=== PATIENT | male | born 1945 | race Caucasian/White ===

== ENCOUNTER 2017-08-25 12:13 | Observation (INO) | payer MEDICARE, OTHER ==
[2017-08-25] MEDS ORDERED: NS 0.9% 1000 ML* 1,000 ML IV ONE (12:37)
--- NOTE | 2017-08-25 13:00 | RAD ---
Indication: Slurred speech with right-sided numbness. CT of the brain was performed without IV contrast. Ventricular structures are midline. No midline shift is noted. Central and cortical atrophy is noted. Wedge-shaped hypodensity in the right posterior cerebellum likely representing old infarct. Likely chronic ischemic White matter change is noted. 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 No intracranial mass or hemorrhage is noted. Findings discussed with Dr. Ornelas at 12:55 PM.
[2017-08-25 13:05] LABS: Hematocrit 36 % (42-52); Hemoglobin 12.2 g/dl (14.0-18.0); Mean Corpuscular HGB Conc 34 g/dl (31-36); Mean Corpuscular Hemoglobin 30 pg (27-31); Mean Corpuscular Volume 88 fL (80-94); Mean Platelet Volume 7 um3 (7.4-10.4); Red Cell Distribution Width 15 % (10.5-15); White Blood Count 10.2 10^3/ul (3.5-10.8)
[2017-08-25 13:39] LABS: Albumin 3.7 g/dL (3.2-5.2); BUN/Creatinine Ratio 9.6 (8-20); Calcium 9.8 mg/dL (8.6-10.3); EGFR Non-African American 52.1 (>60); Globulin 3.2 g/dL (2-4); HDL Cholesterol 54.6 mg/dL; Potassium 3.7 mmol/L (3.5-5.0); Total Bilirubin 0.5 mg/dL (0.2-1.0); Total Protein 6.9 g/dL (6.4-8.9)
[2017-08-25 13:41] LABS: Troponin I 0.01 ng/mL (<0.04)
--- NOTE | 2017-08-25 13:45 | RAD ---
INDICATION: Slurred speech and facial numbness COMPARISON: Most recent comparison chest x-rays dated November 30, 2011 TECHNIQUE: Single AP portable view of the chest was obtained. FINDINGS: Image quality is compromised due to the relative inferiority of a portable chest x-ray. The heart and mediastinum exhibit normal size and contour. The lungs are grossly clear. There is no evidence of a large pleural effusion. Visualized bones are normal for the patient's age. IMPRESSION: No radiographic evidence for acute cardiopulmonary abnormality on this portable chest x-ray.
[2017-08-25] MEDS ORDERED: Iodixanol* (CONTRAST) 320 MG/ML 100 ML SDV IV ONE (13:46)
--- NOTE | 2017-08-25 14:24 | RAD ---
HISTORY: Transient expressive aphasia and right arm weakness COMPARISONS: CT dated August 25, 2017 TECHNIQUE: Multiple contiguous axial CT scans were obtained of the head and neck After the administration of nonionic intravenous contrast timed to the systemic arterial phase of contrast enhancement. Coronal and sagittal multiplanar reformations are submitted for review. Multiple 3-D maximum intensity projection reconstructions are also submitted for review. FINDINGS: CTA NECK: AORTIC ARCH: The aortic arch isn't completely included within the [id number] of the submitted images. There is atherosclerosis of the proximal aorta without appreciable stenosis of the proximal cephalic great vessels. RIGHT VERTEBRAL ARTERY: The right vertebral artery terminates in the right posterior inferior cerebellar artery. LEFT VERTEBRAL ARTERY: The left vertebral artery is patent along its course, without stenosis. DOMINANCE: The left vertebral artery is dominant. RIGHT COMMON CAROTID ARTERY: The right common carotid artery is patent. The right carotid bifurcation occurs at C3-C4 RIGHT INTERNAL CAROTID ARTERY: There is atheromatous disease of the complex ulcerated plaque of the right carotid bifurcation, with approximately 50% short segment stenosis of the proximal right internal carotid artery by NASCET criteria. RIGHT EXTERNAL CAROTID ARTERY: The right external carotid artery is unremarkable. LEFT COMMON CAROTID ARTERY: The left common carotid artery is patent. The left carotid bifurcation occurs at C3-C4 LEFT INTERNAL CAROTID ARTERY: There is calcific atherosclerotic plaque with approximately 60% short segment left internal carotid artery stenosis by NASCET criteria. LEFT EXTERNAL CAROTID ARTERY: The left external carotid artery is unremarkable. VENOUS CIRCULATION: The venous system is unremarkable. SALIVARY GLANDS: The parotid glands, submandibular glands, sublingual glands are normal. NASAL CAVITY/NASOPHARYNX: The nasal cavity and nasopharynx are normal. ORAL CAVITY/OROPHARYNX: The oral cavity and oropharynx are unremarkable. LARYNGEAL APPARATUS/HYPOPHARYNX: The laryngeal apparatus and hypopharynx are normal. UPPER AIRWAY/UPPER ESOPHAGUS: The visualized upper airway and esophagus are normal. LUNG APICES: There is extensive centrilobular and panacinar emphysematous change of the lung apices bilaterally. THYROID GLAND: The thyroid gland is normal. LYMPH NODES: There is no lymphadenopathy by size criteria. BONES AND SOFT TISSUES: Degenerative changes are noted of the spine CTA HEAD: INTRACRANIAL CIRCULATION: There is no aneurysm, vascular malformation, occlusion, or stenosis of the visualized intracranial circulation. The anterior communicating artery complex is clear. There is a origin of the left posterior cerebral artery. VENOUS CIRCULATION: The venous system is unremarkable. PERFUSION: There is no obvious parenchymal perfusion deficit. HEMORRHAGE/INFARCT: There is no hemorrhage or acute infarct. MASSES/SHIFT: There is no mass or shift. EXTRA-AXIAL SPACES: There are no extra-axial fluid collections. SULCI AND VENTRICLES: The sulci and ventricles are normal in size and position for the patient's stated age. CEREBRUM: There are no focal parenchymal abnormalities. BRAINSTEM: There are no focal parenchymal abnormalities. CEREBELLUM: There is a chronic infarct of the right inferior cerebellum PARANASAL SINUSES: The paranasal sinuses are clear. ORBITS: The orbits are unremarkable. BONES AND SOFT TISSUE: No bone or soft tissue abnormalities are noted. OTHER: There is no abnormal enhancement. IMPRESSION: 1. ATHEROSCLEROSIS. 2. THERE IS APPROXIMATELY 50% SHORT SEGMENT RIGHT INTERNAL CAROTID ARTERY STENOSIS WITH 60% SHORT SEGMENT LEFT INTERNAL CAROTID ARTERY STENOSIS BY NASCET CRITERIA. 3. THERE IS COMPLEX ULCERATED PLAQUE OF THE RIGHT CAROTID BIFURCATION. 4. NO ANEURYSM, VASCULAR MALFORMATION, OCCLUSION, OR STENOSIS OF THE VISUALIZED INTRACRANIAL CIRCULATION. 5. EMPHYSEMA CPT II Codes: 3100F
--- NOTE | 2017-08-25 15:39 | ED ---
Elaine Horan Edward, scribed for Bryan Ornelas MD on 08/25/17 at 1229 . Neurological HPI - HPI Summary HPI Summary: 72 y/o male presents to the ED c/o slurred speech and R side facial numbness/ tingling earlier this morning. Pt first had an episode of slurred speech at around 09:30 this morning that lasted minutes. The pt knew what he wanted to say but could not produce comprehensible speech. Then at 11:30 the pt c/o R side facial numbness/tingling and RUE weakness, along with slurred speech. Pt currently does not c/o numbness/tingling in his face or extremities. Currently the pt states that his legs intermittently feel like "they are asleep". Associated sx: pressure behind both eyes, intermittent chills. Pt is R handed. PMHx AAA, HLD, COPD, GERD, HTN. Sx bypass. - History of Current Complaint Chief Complaint: EDNeurologicalDeficit Stated Complaint: SLURRED SPEECH, FACIAL NUMBESS Hx Obtained From: Patient Onset/Duration: Sudden Onset, Started hours ago - 09:30 Timing: Intermittent Episodes Lasting: - minutes Neurological Deficit Location: Facial, RUE, RLE, LLE Pain Intensity: 0 Character: Numbness/Tingling - face, RUE, and bilateral legs, Motor Weakness - bilateral legs, RUE, Impaired Speech Frequency: Episodes x___ - 2, Episodes Lasting ____ (in Mins/Days/Weeks/Years) - minutes Aggravating: Nothing Alleviating: Nothing Associated Signs and Symptoms: Positive: Weakness, Impaired Speech, Numbness - Allergy/Home Medications Allergies/Adverse Reactions: Allergies Allergy/AdvReac Type Severity Reaction Status Date / Time Amoxicillin [From Augmentin] Allergy Vomiting Verified 08/25/17 13:33 Clavulanic Acid Allergy Vomiting Verified 08/25/17 13:33 [From Augmentin] Home Medications: Home Medications Acetaminophen [Acetaminophen Extra Stren] 500 mg PO Q6HR PRN 08/25/17 [History Confirmed 08/25/17] Albuterol HFA INHALER* [Ventolin HFA Inhaler*] 2 puff INH BID 08/25/17 [History Confirmed 08/25/17] Aspirin TAB* [Aspirin 325 MG TAB*] 325 mg PO DAILY 08/25/17 [History Confirmed 08/25/17] Atorvastatin* [Lipitor*] 40 mg PO DAILY 08/25/17 [History Confirmed 08/25/17] Budesonide/Formote 160/4.5(NF) [Symbicort 160/4.5 (NF)] 2 puff INH BID 08/25/17 [History Confirmed 08/25/17] Omeprazole CAP* [Prilosec CAP* 20 MG] 20 mg PO DAILY 08/25/17 [History Confirmed 08/25/17] amLODIPine TAB* [Norvasc 5 mg TAB*] 5 mg PO DAILY 08/25/17 [History Confirmed ] PMH/Surg Hx/FS Hx/Imm Hx Previously Healthy: No Cardiovascular History: Reports: Hx Aneurysm - AAA, Hx Hypertension, Other Cardiovascular Problems/Disorders - blood clots in legs Respiratory History: Reports: Hx Chronic Obstructive Pulmonary Disease (COPD) GI History: Reports: Hx Gastroesophageal Reflux Disease - Surgical History Surgery Procedure, Year, and Place: bypass Infectious Disease History: No Infectious Disease History: Denies: Traveled Outside the [place] in Last 30 Days - Social History Lives: With Family Review of Systems Positive: Chills Positive: Other - pressure behind both eyes ENT: Negative Cardiovascular: Negative Respiratory: Negative Gastrointestinal: Negative Genitourinary: Negative Musculoskeletal: Negative Skin: Negative Positive: Weakness - RUE, bilateral legs, Numbness - and tingling in face, Slurred Speech Psychological: Normal All Other Systems Reviewed And Are Negative: Yes Physical Exam Triage Information Reviewed: Yes Vital Signs On Initial Exam: Initial Vitals Temp Pulse Resp BP Pulse Ox 98.3 F 55 14 171/130 100 08/25/17 12:17 08/25/17 12:17 08/25/17 12:17 08/25/17 12:17 08/25/17 12:17 Vital Signs Reviewed: Yes Appearance: Positive: Well-Appearing, No Pain Distress Skin: Positive: Warm, Skin Color Reflects Adequate Perfusion, Dry Head/Face: Positive: Normal Head/Face Inspection Eyes: Positive: EOMI, AFIA ENT: Positive: Normal ENT inspection Neck: Positive: Supple, Nontender Respiratory/Lung Sounds: Positive: Clear to Auscultation, Breath Sounds Present Cardiovascular: Positive: RRR Abdomen Description: Positive: Nontender, Soft Bowel Sounds: Positive: Present Musculoskeletal: Positive: Normal, Strength/ROM Intact Neurological: Positive: Normal, Sensory/Motor Intact, Alert, Oriented to Person Place, Time Psychiatric: Positive: Affect/Mood Appropriate - Darlene Coma Scale Best Eye Response: 4 - Spontaneous Best Motor Response: 6 - Obeys Commands Best Verbal Response: 5 - Oriented Diagnostics - Vital Signs Vital Signs Temp Pulse Resp BP Pulse Ox 08/25/17 12:17 98.3 F 55 14 171/130 100 - Laboratory Lab Results: Lab Results 08/25/17 08/25/17 08/25/17 Range/Units 12:50 12:50 12:50 WBC 10.2 (3.5-10.8) 10^3/ul RBC 4.10 (4.0-5.4) 10^6/ul Hgb 12.2 L (14.0-18.0) g/dl Hct 36 L (42-52) % MCV 88 (80-94) fL MCH 30 (27-31) pg MCHC 34 (31-36) g/dl RDW 15 (10.5-15) % Plt Count 230 (150-450) 10^3/ul MPV 7 L (7.4-10.4) um3 Neut % (Auto) 75.9 (38-83) % Lymph % (Auto) 14.0 L (25-47) % [place] % (Auto) 7.2 (1-9) % Eos % (Auto) 2.2 (0-6) % Baso % (Auto) 0.7 (0-2) % Absolute Neuts (auto) 7.7 (1.5-7.7) 10^3/ul Absolute Lymphs (auto) 1.4 (1.0-4.8) 10^3/ul Absolute Monos (auto) 0.7 (0-0.8) 10^3/ul Absolute Eos (auto) 0.2 (0-0.6) 10^3/ul Absolute Basos (auto) 0.1 (0-0.2) 10^3/ul Absolute Nucleated RBC 0 10^3/ul Nucleated RBC % 0 INR (Anticoag Therapy) 0.94 (0.89-1.11) APTT 26.9 (26.0-36.3) seconds Sodium 136 (133-145) mmol/L Potassium 3.7 (3.5-5.0) mmol/L Chloride 100 L (101-111) mmol/L Carbon Dioxide 27 (22-32) mmol/L Anion Gap 9 (2-11) mmol/L BUN 13 (6-24) mg/dL Creatinine 1.35 H (0.67-1.17) mg/dL Est GFR ( Amer) 67.0 (>60) Est GFR (Non-Af Amer) 52.1 (>60) BUN/Creatinine Ratio 9.6 (8-20) Glucose 97 (70-100) mg/dL POC Glucose (mg/dL) (70-100) mg/dL Lactic Acid (0.5-2.0) mmol/L Calcium 9.8 (8.6-10.3) mg/dL Total Bilirubin 0.50 (0.2-1.0) mg/dL AST 10 L (13-39) U/L ALT 10 (7-52) U/L Alkaline Phosphatase 67 (34-104) U/L Troponin I 0.01 (<0.04) ng/mL Total Protein 6.9 (6.4-8.9) g/dL Albumin 3.7 (3.2-5.2) g/dL Globulin 3.2 (2-4) g/dL Albumin/Globulin Ratio 1.2 (1-3) Triglycerides 101 mg/dL Cholesterol 171 mg/dL LDL Cholesterol 96 mg/dL HDL Cholesterol 54.6 mg/dL Blood Type Antibody Screen 08/25/17 08/25/17 08/25/17 Range/Units 12:50 12:50 13:30 WBC (3.5-10.8) 10^3/ul RBC (4.0-5.4) 10^6/ul Hgb (14.0-18.0) g/dl Hct (42-52) % MCV (80-94) fL MCH (27-31) pg MCHC (31-36) g/dl RDW (10.5-15) % Plt Count (150-450) 10^3/ul MPV (7.4-10.4) um3 Neut % (Auto) (38-83) % Lymph % (Auto) (25-47) % [place] % (Auto) (1-9) % Eos % (Auto) (0-6) % Baso % (Auto) (0-2) % Absolute Neuts (auto) (1.5-7.7) 10^3/ul Absolute Lymphs (auto) (1.0-4.8) 10^3/ul Absolute Monos (auto) (0-0.8) 10^3/ul Absolute Eos (auto) (0-0.6) 10^3/ul Absolute Basos (auto) (0-0.2) 10^3/ul Absolute Nucleated RBC 10^3/ul Nucleated RBC % INR (Anticoag Therapy) (0.89-1.11) APTT (26.0-36.3) seconds Sodium (133-145) mmol/L Potassium (3.5-5.0) mmol/L Chloride (101-111) mmol/L Carbon Dioxide (22-32) mmol/L Anion Gap (2-11) mmol/L BUN (6-24) mg/dL Creatinine (0.67-1.17) mg/dL Est GFR ( Amer) (>60) Est GFR (Non-Af Amer) (>60) BUN/Creatinine Ratio (8-20) Glucose (70-100) mg/dL POC Glucose (mg/dL) 111 H (70-100) mg/dL Lactic Acid 1.4 (0.5-2.0) mmol/L Calcium (8.6-10.3) mg/dL Total Bilirubin (0.2-1.0) mg/dL AST (13-39) U/L ALT (7-52) U/L Alkaline Phosphatase (34-104) U/L Troponin I (<0.04) ng/mL Total Protein (6.4-8.9) g/dL Albumin (3.2-5.2) g/dL Globulin (2-4) g/dL Albumin/Globulin Ratio (1-3) Triglycerides mg/dL Cholesterol mg/dL LDL Cholesterol mg/dL HDL Cholesterol mg/dL Blood Type B Negative Antibody Screen Negative Result Diagrams: 08/25/17 12:50 08/25/17 12:50 Lab Statement: Any lab studies that have been ordered have been reviewed, and results considered in the medical decision making process. - Radiology CXR Xray Interpretation: No Acute Changes - No radiographic evidence for acute cardiopulmonary abnormality on this portable chest x-ray. 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 No intracranial mass or hemorrhage is noted. Findings discussed with Dr. Ornelas at 12:[address] Interpretation Completed By: Radiologist HEAD CTA CT Interpretation: Positive (See Comments) - 1. ATHEROSCLEROSIS. 2. THERE IS APPROXIMATELY 50% SHORT SEGMENT RIGHT INTERNAL CAROTID ARTERY STENOSIS WITH 60% SHORT SEGMENT LEFT INTERNAL CAROTID ARTERY STENOSIS BY NASCET CRITERIA. 3. THERE IS COMPLEX ULCERATED PLAQUE OF THE RIGHT CAROTID BIFURCATION. 4. NO ANEURYSM, VASCULAR MALFORMATION, OCCLUSION, OR STENOSIS OF THE VISUALIZED INTRACRANIAL CIRCULATION. 5. EMPHYSEMA CT Interpretation Completed By: Radiologist - ED PHYSICIAN REVIEWS AND AGREES - Additional Comments Diagnostic Additional Comments: EKG - 13:01 - NSR @ [address] No ectopy. Short VA interval. Borderline prolonged QT interval. Course/Dx - Course Course Of Treatment: DR WELDON, NEUROLOGY SAW PATIENT IN ED. Assessment/Plan: Mari fine called at 12:37. Admitted to HOSPITALIST, Dr. Costa @ 13:52. - Diagnoses Provider Diagnoses: TIA (transient ischemic attack) - Physician Notifications Discussed Care Of Patient With: Jb Weldon Time Discussed With Above Provider: 12:40 Instructed by Provider To: MD Will See In ED Discharge - Discharge Plan Condition: Stable Disposition: ADMITTED TO [facility] Referrals: Ugo Leiva MD [Primary Care Provider] - The documentation as recorded by the Elaine alcaraz Edward accurately reflects the service I personally performed and the decisions made by me, Bryan Ornelas MD.
--- NOTE | 2017-08-25 15:47 | RAD ---
HISTORY: MRI screening, history of metallic foreign body COMPARISONS: None VIEWS: Frontal views of the abdomen. FINDINGS: BOWEL: There is a nonspecific bowel gas pattern, with nondilated small bowel gas noted. CALCULI: There are calculi overlying the renal parenchymal shadow as bilaterally measuring up to 0.5 cm. BONES AND SOFT TISSUES: There is a scoliotic curvature of the spine. Degenerative changes are noted OTHER FINDINGS: The lung bases are clear. There is no subphrenic gas. An aortic stent graft is noted. IMPRESSION: 1. BILATERAL NEPHROLITHIASIS. 2. AORTIC STENT GRAFT. 3. NONSPECIFIC BOWEL GAS PATTERN.
--- NOTE | 2017-08-25 16:39 | RAD ---
Indication: Dysarthria, aphasia Image sequences: Sagittal and axial T1, axial T2, FLAIR, diffusion and susceptibility weighted images of the brain were obtained. Ventricular structures are midline. No midline shift is noted. The extra-axial spaces are unremarkable. No restriction of diffusion is noted. Periventricular signal abnormalities consistent with microvascular disease is noted. Wedge-shaped signal abnormality in the the right cerebellum is noted consistent with old right cerebellar infarct. There may be some adjacent gliosis. Paranasal sinuses are otherwise unremarkable. Mastoid air cells are unremarkable. IMPRESSION: OLD RIGHT CEREBELLAR INFARCT. CHRONIC ISCHEMIC WHITE MATTER CHANGE. NO EVIDENCE OF ACUTE RESTRICTION OF DIFFUSION IS NOTED.
[2017-08-25 16:49] LABS: Urine Bacteria Absent (Absent); Urine Bilirubin Negative (Negative); Urine Glucose Negative (Negative); Urine Nitrite Negative (Negative)
[2017-08-25 17:03] LABS: TSH (Thyroid Stimulating Horm) 2.15 mcIU/mL (0.34-5.60)
[2017-08-25 17:05] LABS: Free T4 0.96 ng/dL (0.61-1.12)
[2017-08-25 17:11] LABS: Folate 5.52 ng/mL (>3.99)
[2017-08-25] MEDS ORDERED: Ondansetron INJ* 2 MG/ML VIAL IV PRN (17:24)
[2017-08-25] MEDS ORDERED: Acetaminophen TAB* 325 MG PO PRN (17:24)
--- NOTE | 2017-08-25 17:36 | HP ---
History of Present Illness - History of Present Illness Reason for Visit: Neurological deficits History of Present Illness: Mr. Bryant presented to the ED complaining of neurological deficits. At approximately 9:30 AM this morning, patient's significant other (SO) was having a conversation with patient when pt. responded with garbled speech. According to SO, patient had a blank stare for a couple of minutes, and eventually responded by shaking his head. SO recognized that patient was possibly having a CVA and called the patient's PCP at the [facility]. [facility] suggested reporting to the ED, however, patient was not interested. At approximately 11:30 AM, patient told his SO, "my face doesn't feel right." SO appreciated a right-sided facial droop at this time, and patient agreed to go to the ED. Shortly after arrival to the ED, pt's symptoms resolved. At the time of the incident, patient admitted to tingling in his right arm, numbness of the right 2nd-4th digits, B/L tingling of LE, and pressure behind both eyes. Pt. denied fatigue, fever, chills, lightheadedness, dizziness, CHRISTY, visual disturbances, CP, LE edema, SOB, abdominal pain, N/V/D, dysuria, or other weakness. - Past Medical History Cardiac: HTN, Hyperlipidemia, Other - Peripheral Vascular Disease Pulmonary: COPD - Past Surgical History Past Surgical History: Hernia Repair - L. Inguinal, Other - AAA repair, Femoral- popliteal bypass B/L - Past Family History Family History: Other - Adopted; unknown - Past Social History Smoke: # pack years - 50, <1 pack per day Occupation: Alcohol: Occassional - 1-3 beverages/day Drugs: None Lives: With Family - Significant other Review of Systems - Review of Systems Eyes: Positive: Other - Pressure behind both eyes Respiratory: Positive: Cough Neurological: Positive: Numbness, Change in Speech - Medications/Allergies Allergies/Adverse Reactions: Allergies Allergy/AdvReac Type Severity Reaction Status Date / Time Amoxicillin [From Augmentin] Allergy Vomiting Verified 08/25/17 13:33 Clavulanic Acid Allergy Vomiting Verified 08/25/17 13:33 [From Augmentin] Medications: Current Medications Acetaminophen (Tylenol Tab*) 650 mg PO Q4H PRN PRN Reason: FEVER/PAIN Aspirin (Ecotrin Ec Tab*) 325 mg PO DAILY EVIN Enoxaparin Sodium (Lovenox(*)) 40 mg SUBCUT Q24H EVIN Ondansetron HCl (Zofran Inj*) 4 mg IV Q4H PRN PRN Reason: NAUSEA/VOMITING Acetaminophen [Acetaminophen Extra Stren] 500 mg PO Q6HR PRN 08/25/17 [History Confirmed 08/25/17] Albuterol HFA INHALER* [Ventolin HFA Inhaler*] 2 puff INH BID 08/25/17 [History Confirmed 08/25/17] Aspirin TAB* [Aspirin 325 MG TAB*] 325 mg PO DAILY 08/25/17 [History Confirmed 08/25/17] Atorvastatin* [Lipitor*] 40 mg PO DAILY 08/25/17 [History Confirmed 08/25/17] Budesonide/Formote 160/4.5(NF) [Symbicort 160/4.5 (NF)] 2 puff INH BID 08/25/17 [History Confirmed 08/25/17] Omeprazole CAP* [Prilosec CAP* 20 MG] 20 mg PO DAILY 08/25/17 [History Confirmed 08/25/17] amLODIPine TAB* [Norvasc 5 mg TAB*] 5 mg PO DAILY 08/25/17 [History Confirmed ] Exam - Exam Vital Signs: Vital Signs (72 hours) 08/25/17 16:03 Pulse Rate 90 Respiratory 16 Rate Blood Pressure 172/100 (mmHg) O2 Sat by Pulse 99 Oximetry General: Alert, Oriented x3, Cooperative, No acute distress HEENT: Atraumatic, PERRLA, EOMI Lungs: Clear to auscultation Cardiovascular: Regular rate, Normal S1, Normal S2, No murmurs Abdomen: Soft, No tenderness Extremities: No edema, Normal pulses Neurological: Normal speech, Strength at 5/5 X4 ext, Normal tone, Sensation intact, Cranial nerves 3-12 NL Psych/Mental Status: Mental status NL Assessment/Plan - Assessment/Plan Assessment: TIA-- Imaging: Brain CT-No acute disease CTA-50% Right internal carotid artery stenosis; 60% Left internal carotid artery stenosis Brain MRI-no acute disease Laboratory Studies: Lipid panel, CMP, CBC, PT/PTT-all WNL Diagnostic Studies: EKG-No acute disease Echocardiogram-Moderate mitral and tricuspid regurgitation Laboratory Results - last 24 hr 1108/25/17 08/25/17 12:50 12:50 12:50 WBC 10.2 RBC 4.10 Hgb 12.2 L Hct 36 L MCV 88 MCH 30 MCHC 34 RDW 15 Plt Count 230 MPV 7 L Neut % (Auto) 75.9 Lymph % (Auto) 14.0 L [place] % (Auto) 7.2 Eos % (Auto) 2.2 Baso % (Auto) 0.7 Absolute Neuts (auto) 7.7 Absolute Lymphs (auto) 1.4 Absolute Monos (auto) 0.7 Absolute Eos (auto) 0.2 Absolute Basos (auto) 0.1 Absolute Nucleated RBC 0 Nucleated RBC % 0 INR (Anticoag Therapy) 0.94 APTT 26.9 Sodium 136 Potassium 3.7 Chloride 100 L Carbon Dioxide 27 Anion Gap 9 BUN 13 Creatinine 1.35 H Est GFR ( Amer) 67.0 Est GFR (Non-Af Amer) 52.1 BUN/Creatinine Ratio 9.6 Glucose 97 POC Glucose (mg/dL) Lactic Acid Calcium 9.8 Total Bilirubin 0.50 AST 10 L ALT 10 Alkaline Phosphatase 67 Troponin I 0.01 Total Protein 6.9 Albumin 3.7 Globulin 3.2 Albumin/Globulin Ratio 1.2 Triglycerides 101 Cholesterol 171 LDL Cholesterol 96 HDL Cholesterol 54.6 Vitamin B12 158 L Folate 5.52 TSH 2.15 Free T4 0.96 Urine Color Urine Appearance Urine pH Ur Specific [place] Urine Protein Urine Ketones Urine Blood Urine Nitrate Urine Bilirubin Urine Urobilinogen Ur Leukocyte Esterase Urine WBC (Auto) Urine RBC (Auto) Urine Bacteria Urine Glucose Blood Type Antibody Screen 08/25/17 08/25/17 08/25/17 12:50 12:50 13:30 WBC RBC Hgb Hct MCV MCH MCHC RDW Plt Count MPV Neut % (Auto) Lymph % (Auto) [place] % (Auto) Eos % (Auto) Baso % (Auto) Absolute Neuts (auto) Absolute Lymphs (auto) Absolute Monos (auto) Absolute Eos (auto) Absolute Basos (auto) Absolute Nucleated RBC Nucleated RBC % INR (Anticoag Therapy) APTT Sodium Potassium Chloride Carbon Dioxide Anion Gap BUN Creatinine Est GFR ( Amer) Est GFR (Non-Af Amer) BUN/Creatinine Ratio Glucose POC Glucose (mg/dL) 111 H Lactic Acid 1.4 Calcium Total Bilirubin AST ALT Alkaline Phosphatase Troponin I Total Protein Albumin Globulin Albumin/Globulin Ratio Triglycerides Cholesterol LDL Cholesterol HDL Cholesterol Vitamin B12 Folate TSH Free T4 Urine Color Urine Appearance Urine pH Ur Specific [place] Urine Protein Urine Ketones Urine Blood Urine Nitrate Urine Bilirubin Urine Urobilinogen Ur Leukocyte Esterase Urine WBC (Auto) Urine RBC (Auto) Urine Bacteria Urine Glucose Blood Type B Negative Antibody Screen Negative 08/25/17 16:00 WBC RBC Hgb Hct MCV MCH MCHC RDW Plt Count MPV Neut % (Auto) Lymph % (Auto) [place] % (Auto) Eos % (Auto) Baso % (Auto) Absolute Neuts (auto) Absolute Lymphs (auto) Absolute Monos (auto) Absolute Eos (auto) Absolute Basos (auto) Absolute Nucleated RBC Nucleated RBC % INR (Anticoag Therapy) APTT Sodium Potassium Chloride Carbon Dioxide Anion Gap BUN Creatinine Est GFR ( Amer) Est GFR (Non-Af Amer) BUN/Creatinine Ratio Glucose POC Glucose (mg/dL) Lactic Acid Calcium Total Bilirubin AST ALT Alkaline Phosphatase Troponin I Total Protein Albumin Globulin Albumin/Globulin Ratio Triglycerides Cholesterol LDL Cholesterol HDL Cholesterol Vitamin B12 Folate TSH Free T4 Urine Color Straw Urine Appearance Clear Urine pH 8.0 Ur Specific [place] 1.013 Urine Protein 2+(100 mg/dl) H Urine Ketones Negative Urine Blood Negative Urine Nitrate Negative Urine Bilirubin Negative Urine Urobilinogen Negative Ur Leukocyte Esterase Negative Urine WBC (Auto) Absent Urine RBC (Auto) Absent Urine Bacteria Absent Urine Glucose Negative Blood Type Antibody Screen Plan: Mr. Bryant is a 72 yo M who presented to ED with neurological deficits, and since then, symptoms have resolved. Patient will be admitted for TIA work-up. 1. TIA-Patient will be switched from Aspirin to Plavix to maximize anti- platelet therapy and will be monitored on the telemetry unit. 2. COPD-Continue routine medications 3. Hyperlipidemia-Continue routine medications 4. HTN-Tight BP control as BP was 172/100 on admission
--- NOTE | 2017-08-25 17:48 | ECHO ---
Patient: ANA ESPANA [facility] Rec#: [id number] : 1945 Date: 08/25/2017 Age: 72y Height: 167.64 cm / 66.0 in Weight: 64.41 kg / 142.0 lbs Sex: M BSA: 1.73 Room#: -8 Admit Date#: 08/25/2017 Type: Inpatient Referring: Miguel Weldon Reading: Ean Cheney MD Campaign Manager: Karla Stein [facility] Transthoracic Echocardiogram Indication: TIA BP: 166/86 HR: 91 Rhythm: NSR with PVCs Findings History: COPD,s/p fem-popbypass,AAA,HTN,GERD,smoker. Left Ventricle: The left ventricular chamber size is normal. Mild global hypokinesis of the left ventricle is observed. Left ventricular systolic function is at the lower limits of normal. The estimated ejection fraction is 45-50%. Abnormal left ventricular diastolic function is observed. The basal inferior wall segment is hypokinetic (score 2). Overall wallmotion score index is 2.00 Left Atrium: The left atrial chamber size is normal. Right Ventricle: The right ventricular cavity size is normal. The right ventricular global systolic function is normal. Right Atrium: The right atrial cavity size is normal. There is no patent foramen ovale visualized. A patent foramen ovale is not demonstrated with color Doppler and agitated contrast. Aortic Valve: The aortic valve structure is not well visualized. There is no evidence of aortic valve thickening. There is no evidence of aortic regurgitation. There is no evidence of aortic stenosis. Mitral Valve: The mitral valve leaflets are mildly thickened. There is mild to moderate mitral regurgitation. There is no evidence of mitral stenosis. Tricuspid Valve: The tricuspid valve leaflets are normal. There is mild tricuspid regurgitation. No pulmonary hypertension is noted. There is no tricuspid stenosis. Pulmonic Valve: The pulmonic valve structure is not well visualized. Pericardium: The pericardium appears normal. Aorta: The ascending aorta is not well visualized. There is no dilatation of the aortic arch. There is no dilation of the aortic root. Pulmonary Artery: The main pulmonary artery is not well visualized. Venous: The inferior vena cava appears normal in size. There is a greater than 50% respiratory change in the inferior vena cava dimension. Contrast: Normal saline was used as contrast for the bubble study. Intravenous contrast was used to enhance endocardial border definition. Conclusions Mild global hypokinesis of the left ventricle is observed. Left ventricular systolic function is at the lower limits of normal. The estimated ejection fraction is 45-50%. The basal inferior wall segment is hypokinetic (score 2). The right ventricular global systolic function is normal. A patent foramen ovale is not demonstrated with color Doppler and agitated contrast. There is no evidence of aortic stenosis. There is mild to moderate mitral regurgitation. There is mild tricuspid regurgitation. No pulmonary hypertension is noted. The pericardium appears normal. Measurements Name Value Normal Range RVDdMajor (2D) 2.6 cm (2.2 - 4.4) RAd ISD 4CH 4.3 cm (3.4 - 4.9) RA (A4C)W 2.8 cm (2.9 - 4.6) IVSd (2D) 0.8 cm (0.6 - 1) LVPWd (2D) 0.8 cm (0.6 - 1) LVIDd (2D) 4.6 cm (3.6 - 5.4) LVIDs (2D) 3.3 cm - LV FS (2D) 28 % (25 - 45) Aortic Annulus 2 cm (1.4 - 2.6) Ao root diameter (2D) 3.4 cm (2.1 - 3.5) Aortic arch 1.8 cm (1.8 - 3.4) Descending Ao 0.5 cm - LA dimension (AP) 2D 2.7 cm (2.3 - 3.8) LAd ISD 4CH 4.4 cm (2.9 - 5.3) LA ISD 4CH W 3.5 cm (2.5 - 4.5) Name Value Normal Range LA ESV SP 4CH (A/L) 36 ml - LA ESV SP 2CH (A/L) 47 ml - LA ESV BP (A/L) 43 ml - LA ESV BP (A/L) index 24.87 ml/m2 - LA ESV SP 4CH (MOD) 34 ml - LA ESV SP 2CH (MOD) 44 ml - Name Value Normal Range MV E-wave Vmax 0.6 m/sec - MV deceleration time 254 msec - MV A-wave Vmax 0.9 m/sec - MV E:A ratio 0.62 ratio - LV septal e' Vmax 0.08 m/sec - LV lateral e' Vmax 0.06 m/sec - LV E:e' septal ratio 7.5 ratio - LV E:e' lateral ratio 10 ratio - Name Value Normal Range AV Vmax 1.2 m/sec - AV VTI 23.5 cm - AV peak gradient 5.88 mmHg - AV mean gradient 2.99 mmHg - LVOT Vmax 1 m/sec - LVOT VTI 19.9 cm - LVOT peak gradient 4.04 mmHg - LVOT mean gradient 1.89 mmHg - Name Value Normal Range MR Vmax 5.6 m/sec - MR VTI 187 cm - Name Value Normal Range TR Vmax 2.4 m/sec - TR peak gradient 24 mmHg - RAP 3 mmHg - RVSP 27 mmHg - IVC diameter 1.9 cm - Wallmotion BAS Not Seen BA Not Seen BAL Not Seen HOWARD Not Seen BI Hypokinetic BIS Not Seen MAS Not Seen MA Not Seen MAL Not Seen MIL Not Seen MN Not Seen MIS Not Seen Not Seen AA Not Seen AL Not Seen AI Not Seen APEX Not Seen
[2017-08-25] MEDS ORDERED: Enoxaparin(*) 40 MG/0.4 ML SYR SUBCUT SCH (18:00)
--- NOTE | 2017-08-25 19:38 | CONS ---
CONSULTATION REPORT: DATE OF CONSULTATION: 08/25/17 REASON FOR CONSULTATION: Speech difficulties and numbness and tingling. HISTORY OF PRESENT ILLNESS: Mr. 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 He has been on amlodipine for years for his history of aneurysms with good control of his blood pressure. He also has a history of hyperlipidemia. He is a smoker and drinker. He was in his usual state of health when this morning at 9:30, he was talking and his family noted that he was having some difficulty with speech. They said his words were coming out "jumbled." He states he knew what he wanted to say, but he could not produce the words. He states that the symptoms lasted for about 10 minutes and then resolved and he returned back to his usual state of health with no focal deficits. He denied any vision changes at that time, any headache at that time, hearing changes, swallowing problems. There was no facial droop at that time. No focal numbness, tingling, or weakness in his arms or legs. No chest pain, shortness of breath above baseline. No other focal neurologic symptoms. About 2 hours later at 11:30, he noted some numbness in the right side of his face, his family thought that he might have a mild droop on the right side of his face. He also noted numbness and tingling in the digits 3, 4 , and 5 on the right hand, and he noted some bilateral feet numbness, which he states he gets at times when he has been standing for a while. He also had some slurred speech at that time. It lasted for another few minutes and then resolved. Ambulance was called and he was brought to the ER. In the ER, imaging was done. A CT of the head was reviewed, it showed no acute abnormalities. 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 The patient was unaware of any prior strokes. Since his visit in the ER, he has been asymptomatic. He states that at the time of his last symptoms at 11:00, he had some pressure behind his eyes, but did not describe it as a headache. Again noted no vision changes, no loss of vision or blurred vision, no double vision, no hearing changes, although he does have chronic loss of hearing. No swallowing problems. No other focal neurologic signs except those noted above. He specifically denied any left- sided numbness, tingling, or weakness. He denied any weakness on the right side , only the numbness and tingling. He states that after his surgery on 07/21/17 , he did have some urinary retention and he occasionally has chills, but otherwise denies any other symptoms, specifically no nausea or vomiting, no shortness of breath above his baseline, no chest pain. No dyspnea on exertion, no dysuria or frequency, no diarrhea or constipation, no musculoskeletal aches or pains, he denies any recent falls, denies any severe depression or anxiety. PAST MEDICAL HISTORY: As noted above, includes: 1. COPD. 2. Peripheral artery disease. 3. Hyperlipidemia. 4. Hypertension. PAST SURGICAL HISTORY: Includes: 1. Hernia repair on the right. He does have an inguinal hernia on the left as well, unrepaired. 2. Aneurysms removed in the legs in the distant past. 3. Fem-pop bypass bilaterally in the past. 4. Aortic aneurysm repair intravascularly with stenting on 07/21/17. MEDICATIONS AT HOME: Include: 1. Albuterol inhaler. 2. Symbicort. 3. Tylenol p.r.n. 4. Omeprazole. 5. Aspirin 325 mg daily. 6. Amlodipine 5 mg daily. 7. Atorvastatin 4 mg daily. ALLERGIES: AUGMENTIN. FAMILY HISTORY: Noncontributory. He is adopted and does not know his family history. SOCIAL HISTORY: He is retired. Worked at a [employer]. He states that he drinks; prior to 07/21/17, he was drinking 2 to 3 beers a day. Since 07/21/17, he states he has been drinking 1 to 2 beers a day. This has been ongoing for years. No history of DTs or withdrawal seizures. He smoked in the past heavily , most recently 3 to 4 cigarettes per day. He states that he stopped for several years, but gained weight and restarted. He denies any drug use. PHYSICAL EXAMINATION: Vital Signs: Temperature of 98.3, heart rate of 98, respiratory rate of 16, O2 sat of 96%. He is 171/130. His repeat blood pressure is pending. On exam, in general, he is a well-nourished, well- developed, although thin gentleman in no acute distress. He is lying in his hospital bed. His family at the bedside. He is pleasant, well dressed and well groomed. HEENT: He is normocephalic, atraumatic. Sclerae are anicteric. Mucous membranes are moist. Oropharynx is clear. He has poor dentition. Neck is supple. No thyromegaly. No carotid bruits. No meningismus. Chest: Clear to auscultation bilaterally. Cardiovascular: Regular rate and rhythm. No murmurs. Abdomen: Nontender. Extremities: No clubbing, cyanosis, or edema. He has good peripheral pulses bilaterally in the feet. On neurologic exam, he is awake, alert and oriented x3. His speech is fluent. There is no dysarthria. Repetition is intact. Recall of recent and remote events is intact. Vocabulary is intact. His mood is dysthymic and anxious. Affect: Mood congruent. Cranial nerves II through XII: Pupils are equal, round, and reactive to light and accommodation. Extraocular muscles are intact. Visual ascencio are full. He has 1 to 2 beats lateral gaze nystagmus bilaterally. There is a very subtle right lower facial droop. Facial sensation is intact. Tongue is midline. Palate raises symmetrically. Sternocleidomastoid and trapezius are intact. His strength is 5/5 throughout. There is no drift in the upper or lower extremities. Sensation is intact to light touch and pinprick throughout with preserved vibration proprioception in the feet bilaterally. DTRs are 1+ and symmetric in the upper extremities, 2+ and symmetric in the lower extremities. Withdrawal Babinski bilaterally. Finger-to -nose and rapid alternating movements as well as [id number] are both normal without ataxia. No tremor at rest. Gait was not tested, although he has been ambulating without difficulty. LABORATORY DATA: Lab work includes CBC with diff, hemoglobin of 12.2, hematocrit of 36, 14.0. INR 0.94, PTT of 26.9. CT scan as noted above. EKG; normal sinus rhythm. ASSESSMENT AND PLAN: Mr. Bryant is a 72-year-old gentleman with multiple stroke risk factors including peripheral artery disease, status post fem-pop bypass x2, status post abdominal aortic aneurysm repair on 08/21/17 with stent placement, hyperlipidemia, and hypertension, presents to the hospital with acute onset of some speech difficulties, but may have been some mild expressive aphasia, which resolved after 10 minutes, had a subsequent event 2 hours later at 11:30 that was similar in nature with some mild right lower facial droop and numbness and tingling in the 3rd to 5th digits as well as in his feet bilaterally. This subsequently resolved. On my examination, he has NIH of 1 with a mild right lower facial droop, but otherwise is asymptomatic. At this point, I suspect that this may be transient ischemic attack versus an evolving stroke likely subcortical in nature on the left, but given the fact that he may have had some aphasia, cannot rule out a cortical stroke, although suspicion is low. The plan is to admit him, continue his aspirin. He was previously on Plavix for years, but was switched to aspirin because of his aneurysm and has been on that and taking it. We will continue his statin, check his lipids. For now, would allow for some permissive hypertension. Should his MRI show no evidence of stroke, we can strive for tight blood pressure control. We will get a CT angiogram as well to look for any evidence of arterial disease. Get an echocardiogram. Given his recent abdominal aortic aneurysm, we might want to consider repeat imaging of his abdomen during this hospitalization, although he is currently asymptomatic. We will check labs, rule out reversible causes of stroke, watch him closely with neuro checks. I will continue to follow him closely and make further recommendations as necessary. Thank you for the opportunity to participate in his care. [id number]/[facility] #: [id number] GARCIA
[2017-08-25] MEDS: Mometasone/Formoter 200/5 MDI INH SCH ×2 (21:06→23:44)
[2017-08-25] MEDS: Albuterol HFA INHALER* 8 gm MDI INH SCH ×2 (21:06→23:45)
--- NOTE | 2017-08-25 21:26 | HP ---
CC: Ugo Leiva MD * ADMISSION HISTORY AND PHYSICAL: DATE OF ADMISSION: 08/25/17 PRIMARY CARE PROVIDER: Ugo Leiva MD with [facility]. CONSULTING NEUROLOGIST: Dr. Weldon. ADMITTING PROVIDER: ÁLVARO Shepard SUPERVISING PHYSICIAN: Daya Amato MD * (DICTATED BY ÁLVARO SHEPARD) CHIEF COMPLAINT: Right facial numbness and droop. HISTORY OF PRESENT ILLNESS: This is a 72-year-old gentleman with peripheral vascular disease, recent AAA repair, COPD, hypertension, hyperlipidemia who presented to the emergency department with complaints of right facial numbness and facial droop that occurred acutely this morning. At approximately 9:30 this morning, his significant other reported noting some garbled speech and seemingly a blank stare on his face. Shortly after that, he developed a facial droop and a tingling sensation in his right arm and fingers and both lower extremities. Symptoms lasted for a couple of hours but resolved shortly after reaching the emergency department without any residual findings. The patient denies any history of similar symptoms. He has no known history of prior CVA. The patient did undergo AAA repair approximately 4 weeks ago. He has not experienced any complications as a result of that. The patient denies chest pain, shortness of breath, abdominal pain, nausea, vomiting, visual changes or headache. He has lost about 10 pounds or so in the last month since surgery citing a poor appetite but states that his appetite seems to be picking up again and reports that he did have some constipation postoperatively, which may explain his symptoms. Of note, the patient was previously on dual antiplatelet therapy with clopidogrel and full dose aspirin, but clopidogrel was recently discontinued and he was on monotherapy with full dose aspirin as of recently. There was no adverse reaction to the clopidogrel, I assume it was felt that it was just simply no longer necessary. PAST MEDICAL HISTORY: 1. Peripheral vascular disease with history of bilateral femoral popliteal bypass. 2. AAA status post repair in July 2017. 3. COPD. 4. Hypertension. 5. Hyperlipidemia. PAST SURGICAL HISTORY: 1. Left inguinal hernia repair. 2. AAA repairs in July 2017. 3. Finger amputation. 4. Bilateral fem-pop bypass. HOME MEDICATIONS: 1. Albuterol 2 puffs inhaled twice daily. 2. Amlodipine 5 mg p.o. daily. 3. Aspirin 325 mg p.o. daily. 4. Lipitor 40 mg p.o. daily. 5. Symbicort 2 puffs inhaled twice daily. 6. Omeprazole 20 mg p.o. daily. FAMILY HISTORY: None. The patient is adopted. SOCIAL HISTORY: The patient lives at home with his significant other. He has a significant smoking history, unsure of the exact pack years and drinks 1 to 3 beers daily. He is retired and a . REVIEW OF SYSTEMS: As noted above in the HPI. PHYSICAL EXAMINATION GENERAL: This is a pleasant elderly gentleman accompanied by his significant other, in no acute distress. VITAL SIGNS: Initial vitals; temperature 98.3 degrees Fahrenheit, pulse 55 beats per minute, respiratory rate 14, oxygen saturation 100% on room air, blood pressure 171/130 mmHg. HEENT: Head is normocephalic, atraumatic. Mucous membranes are pink and moist. RESPIRATORY: Lungs are clear to auscultation without wheezes, crackles, or rhonchi. CARDIOVASCULAR: Heart has a regular rate and rhythm without murmurs, rubs, or gallops. ABDOMEN: Soft and nontender to palpation. EXTREMITIES: No edema. NEURO: Cranial nerves II through XII are grossly intact. Strength is grossly symmetric in all 4 extremities. Sensation is grossly intact, no focal deficits appreciated. PSYCH: The patient is alert and appropriately oriented. LABORATORY EVALUATION: CBC is unremarkable with white blood cell count of 10, 200, hemoglobin of 12.2 g/dL, and a platelet count of 230,000. INR normal at 0.9. Comprehensive metabolic panel shows a normal sodium of 136 mmol/L, potassium 3.7, BUN 13, creatinine 1.35 with an estimated GFR of 52, random glucose of 111 mg/dL. Transaminases, total bilirubin within normal limits. Troponin negative at 0.01. Nonfasting lipid panel shows a total cholesterol of 171 with an LDL of 96. Vitamin B12 low at 158. TSH normal at 2.15. Urinalysis is unremarkable. IMAGIN. KUB shows aortic stent graft and a nonspecific bowel gas pattern, no other acute findings. 2. CT of the brain shows an old infarct in the right cerebellum with some mild chronic ischemic white matter change, no other acute findings. 3. Chest x-ray shows no acute process. 4. CTA of the head and neck shows 50% stenosis of the right ICA and 60% of the left with an ulcerated plaque at the right carotid bulb. 5. MRI of the brain shows old infarct in the right cerebellum and chronic white matter changes, no other acute ischemic changes. 6. Echocardiogram shows mild global hypokinesis with an ejection fraction of 45 % to 50% with some basal inferior wall hypokinesis, no PFO or significant valvular disease. 7. EKG shows a sinus rhythm, no acute ischemic changes. ASSESSMENT AND PLAN: This is a 72-year-old gentleman with significant vascular risk factors including known peripheral vascular disease, hypertension, hyperlipidemia, continued tobacco use, chronic obstructive pulmonary disease, and relatively recent abdominal aortic aneurysm repair who presents with acute onset of right facial numbness and droop with garbled speech and some confusion. Symptoms lasted approximately 2 hours and have since resolved and he is asymptomatic at this time. The patient is being placed on an observation status for further evaluation and monitoring. 1. Transient ischemic attack - the patient's acute symptoms appeared to be consistent with a transient ischemic attack. No new cerebrovascular accident appreciated on MRI. He has moderate carotid stenosis bilaterally, but does not require urgent intervention. His echocardiogram shows a mildly reduced ejection fraction. He appears to be in sinus rhythm at this time. We will check a fasting lipid panel and maintain on continuous telemetry monitoring. We will defer to neurology recommendations for antiplatelet therapy, but he appears to have indications to continue his aspirin. We will plan to reintroduce Plavix at this time and again discuss further risks with Neurology for secondary prevention purposes tomorrow. 2. Chronic systolic heart failure. The patient has evidence of a mildly reduced ejection fraction, unsure of the acuity of this. He has no evidence of acute coronary syndrome. There is some focal wall motion change at the base of the heart. If he has not undergone prior coronary workup including stress testing with his primary care provider, this would be recommended as an outpatient. Strong suspicion for coronary artery disease, perhaps with an old myocardial infarction. 3. Peripheral vascular disease - will continue statin and aspirin therapy and reintroduce Plavix. 4. Chronic obstructive pulmonary disease without acute exacerbation. 5. Abdominal aortic aneurysm, status post repair in July 2017 without any acute findings to suggest dissection. 6. Hypertension - the patient is noted to be hypertensive in the emergency department and upon reaching the floor. We will monitor this overnight and adjust his antihypertensives as necessary, but otherwise we plan to continue his amlodipine at the current dosing at this time. 7. Hyperlipidemia - continue statins with a pending fasting lipid panel for the morning. 8. Code status. The patient is full code. 9. Healthcare proxy is the patient's significant other, Maki Ponce. 10. DVT prophylaxis. The patient will be placed on subcu Lovenox. 11. Disposition and followup plan: The patient is being placed on observation status for continuous telemetry monitoring. We plan to likely discharge tomorrow. ÁLVARO SHEPARD [id number]/[facility] #: [id number] GARCIA
[2017-08-26 05:23] LABS: Hematocrit 35 % (42-52); Hemoglobin 12.1 g/dl (14.0-18.0); Mean Corpuscular HGB Conc 34 g/dl (31-36); Mean Corpuscular Hemoglobin 30 pg (27-31); Mean Corpuscular Volume 87 fL (80-94); Mean Platelet Volume 7 um3 (7.4-10.4); Red Blood Count 4.03 10^6/ul (4.0-5.4); Red Cell Distribution Width 15 % (10.5-15); White Blood Count 8.4 10^3/ul (3.5-10.8)
[2017-08-26 05:41] LABS: BUN/Creatinine Ratio 9.1 (8-20); Calcium 9.2 mg/dL (8.6-10.3); EGFR African American 62.7 (>60); EGFR Non-African American 48.8 (>60); HDL Cholesterol 47.9 mg/dL; Potassium 3.2 mmol/L (3.5-5.0)
[2017-08-26] MEDS ORDERED: Cyanocobalamin INJ * 1,000 MCG/ML VIAL 1 ML VIAL IM ONE (07:46)
[2017-08-26] MEDS: Albuterol HFA INHALER* 8 gm MDI INH SCH (07:51)
[2017-08-26] MEDS: Mometasone/Formoter 200/5 MDI INH SCH (07:52)
[2017-08-26 08:39] VITALS: BP 161/78
[2017-08-26] MEDS ORDERED: Clopidogrel TAB* 75 MG PO SCH (09:00)
[2017-08-26] MEDS ORDERED: amLODIPine TAB* 5 MG PO SCH ×2 (09:00)
[2017-08-26] MEDS ORDERED: Aspirin EC TAB* 325 MG PO SCH (09:00)
[2017-08-26] MEDS ORDERED: Atorvastatin* 80 MG TAB PO SCH (09:00)
[2017-08-26] MEDS ORDERED: CMCS:Pantoprazole TAB (NF) 40 MG TAB PO SCH (09:00)
[2017-08-26] MEDS ORDERED: Atorvastatin* 40 MG TAB PO SCH (09:00)
--- NOTE | 2017-08-26 14:52 | DS ---
Patient Name: Gume Bryant Date of : 1945 Patient Status: Inpatient Attending Provider: Daya Costa Date: 08/26/17 13:09 Initialization Date: 08/26/17 13:09 Patient: Gume Bryant /Age: 10 1945 72 Admission Date: 08/24/17 DATE OF ADMISSION: 08/25/2017 DATE OF DISCHARGE: 08/26/2017 DISCHARGING PROVIDER: MASTER Landaverde SUPERVISING PHYSICIAN: Dr. Daya Costa PRIMARY CARE PROVIDER: Dr. Ugo Leiva CONSULTING NEUROLOGIST: Dr. Miguel Weldon PRIMARY NEUROLOGIST: Dr. Miguel Weldon PRIMARY DISCHARGE DIAGNOSES: 1. TIA SECONDARY DISCHARGE DIAGNOSES: 1. Peripheral Vascular Disease 2. COPD 3. HTN 4. Hyperlipidemia DISCHARGE MEDICATIONS: 1. Acetaminophen [Acetaminophen Extra Stren] 500 mg PO Q6HR PRN 08/25/17 [ History Confirmed 08/25/17] 2. Albuterol HFA INHALER* [Ventolin HFA Inhaler*] 2 puff INH BID 08/25/17 [ History Confirmed 08/25/17] 3. Aspirin TAB* [Aspirin 325 MG TAB*] 325 mg PO DAILY 08/25/17 [History Confirmed 08/25/17] 4. Atorvastatin* [Lipitor 80 MG*] 40 mg PO DAILY 08/25/17 [History Confirmed ] 5. Budesonide/Formote 160/4.5(NF) [Symbicort 160/4.5 (NF)] 2 puff INH BID [History Confirmed 08/25/17] 6. Omeprazole CAP* [Prilosec CAP* 20 MG] 20 mg PO DAILY 08/25/17 [History Confirmed 08/25/17] 7. amLODIPine TAB* [Norvasc 5 mg TAB*] 5 mg PO DAILY 08/25/17 [History Confirmed 08/25/17] 8. Amlodipine Besylate [Norvasc 10 mg tab] 10 mg PO DAILY #30 tab 08/26/17 [Rx] 9. Atorvastatin* [Lipitor 80 MG*] 80 mg PO DAILY #30 tab 08/26/17 [Rx] 10. Clopidogrel TAB* [Plavix TAB*] 75 mg PO DAILY #30 tab 08/26/17 [Rx] MEDICATION CHANGES: 1. Norvasc 10 mg daily 2. Atorvastatin 80 mg daily 3. Plavix 75 mg daily DIAGNOSTIC DATA: 1. Brain CT- No active disease 2. KUB- Aortic stent graft 3. Chest x-ray- No active disease 4. CTA of the head and neck show 50% stenosis of the right ICA and 60% of the left ICA as well as an ulcerated plaque of the right carotid bulb. HOSPITAL COURSE: This is a 72 yo male with a PMH of PVD, COPD, hyperlipidemia, and HTN and is presented to the ED because of neurological deficits. At 9:30 AM on the day of admission, patient's significant other stated that patient had garbled speech and a blank stare. Patient's significant other also appreciated a right sided facial droop at approximately 11:30 AM and the patient admitted that his face "didn't feel right". This prompted an evaluation in the ED. Soon after arrival to the ED, the symptoms resolved. Neurological exam was unremarkable. Patient was admitted to the telemetry floor for a TIA work-up. The patient's laboratory studies were unremarkable and patient has not had any return of symptoms. Patient has been started on Plavix and has been instructed to continue Aspirin as well. Patient does have significant HTN that is not controlled on 5 mg of Amlodipine. Patient will be discharged on 10 mg of Amlodipine and should follow-up with PCP for further evaluation and treatment of HTN. DISPOSITION AND FOLLOW-UP PLAN: The patient is being discharged home on the above medications. Patient should follow-up with PCP as well as neurologist Dr. Miguel Weldon who was consulted during hospital stay and saw the patient.
--- NOTE | 2017-08-26 20:07 | PN ---
CC: Primary Care Physician, Ugo Leiva MD * PROGRESS NOTE: DATE OF SERVICE: 08/26/17 LOCATION: The patient is in 434, bed 1. SUBJECTIVE: Overnight, the patient has done well. He has had no further episodes of speech difficulties. He has had no further episodes of numbness or tingling. He has been ambulating without difficulties. Blood pressures have been on the high side with systolics up to 180s. He feels well. No new symptoms. He is anxious to go home. OBJECTIVE: Vital Signs: Temp of 98.2, pulse of 90, respiratory rate of 16, pulse ox 94%, blood pressures have been systolics in the 150s to 180s/70s to 100. In general, he is a well-nourished, well-developed, although thin gentleman, in no acute distress. He is sleeping, but awakens easily. HEENT: He is normocephalic, atraumatic. Sclerae are anicteric. Mucous membranes are moist. He has poor dentition. Neck is supple. No thyromegaly. No carotid bruits. Chest: He had diffuse wheezes and nonproductive cough. Cardiovascular : Regular rate and rhythm without murmurs. Abdomen is nontender. Extremities : No clubbing, cyanosis, or edema. Skin is warm and dry. On neurologic examination, he is awake, alert and oriented x3. His speech is fluent. There is no dysarthria. Recal of recent and remote incidents intact. Cranial Nerves : Pupils are equal, round and reactive to light. Extraocular muscles are intact. Visual ascencio are full. Face is symmetric this morning. Sensation is intact. Hearing is diminished bilaterally. He has hearing aids, but symmetric. Tongue is midline. Palate raises symmetrically. Sternocleidomastoid and trapezius intact. Motor exam: Spontaneously moving all extremities antigravity 5/5 throughout. No drift. Sensation is intact to light touch throughout. No deficits. DTRs are 1+ and symmetric in the upper and lower extremities. Bilaterally symmetric. Adfipr-on-zhbl, rapid alternating movements, atfc-[id number] were intact without ataxia. He has some mild resting tremor in the upper extremities bilaterally. Gait is normal with normal arm swing. Romberg negative. LABORATORY DATA: Lab work includes a white count this morning that is normal 8.4, hemoglobin of 12.1, hematocrit of 35, stable from yesterday. His chemistry ; potassium level 3.2, which is down from 3.7 yesterday, low. Chloride of 99, creatinine 1.3 which is slightly elevated from yesterday. Glucose of 102, calcium of 9.2. Triglyceride of 196, cholesterol 173, LDL of 86, HDL of 47.9. His vitamin B12 was 158. Folate of 5.52. TSH of 2.15, free T4 of 0.96. Urine was essentially normal with 2+ protein. STUDIES DONE: Transthoracic echocardiogram dated 08/25/17, report reviewed. The conclusion: Mild global hypokinesis of the left ventricle is observed. Left ventricular systolic function is at the lower limits of normal. Estimated ejection fraction of 45% to 50%. Inferior wall segment is hypokinetic, score 2. Right ventricular global systolic function is normal. PFO was not demonstrated. No evidence of aortic stenosis. Mild to moderate mitral regurg. Mild tricuspid regurg. No pulmonary hypertension. Pericardium appears normal. His brain MRI showed an evidence of an old cerebellar stroke, but no evidence of new restricted diffusion. Films were reviewed. CTA films reviewed , showed some atherosclerotic disease, approximately 50% short segment of the right internal carotid artery stenosis with 50% short segment left internal carotid artery stenosis, complex ulcerated plaque of the right carotid bifurcation. No aneurysms, vascular malformations, occlusions or stenosis of visualized intracranial circulation. He has emphysema. 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 ASSESSMENT AND PLAN: Mr. Bryant is a 72-year-old gentleman with multiple stroke risk factors including hypertension, hyperlipidemia, peripheral artery disease, status post fem-pop bypass x2 in the past, status post aortic aneurysm repair with stenting in July 2016, who is also a smoker and drinks heavily in the past, presented to the hospital with some aphasia/dysarthria that were short lasting, two episodes with some numbness as well on the right hand and right foot, which has since resolved. He has had no further episodes at this point. His stroke workup is complete. Given his carotid disease, I think that continuation of his aspirin at 325 mg is appropriate. I have increased his Lipitor to 80 mg, goal LDL less than 70. Recommend tight control of blood pressure, watch for any evidence of diabetes. He needs followup examinations of his carotids over time. At this point I did not think he needs any physical therapy. Most importantly, we had a long discussion. He needs to stop smoking. He agreed to do so. The plan will be discharge soon. I defer to primary regarding timing of discharge. Please schedule a followup with me in 4 to 6 weeks. He is to return to the ER with any further symptoms. [id number]/[facility] #: [id number] GARCIA
--- NOTE | 2017-08-27 04:22 | DS ---
CC: Dr. Villanueva; Dr. Julien. * DISCHARGE SUMMARY: DATE OF ADMISSION: 08/25/17 DATE OF DISCHARGE: 08/26/17 PRIMARY CARE PROVIDER: Dr. Villanueva with the [facility] as well as Xiomara Piper NP. PRIMARY VASCULAR SURGEON: Mega Dowling. CONSULTING NEUROLOGIST: Dr. Weldon. DISCHARGING PROVIDER: ÁLVARO Shepard. SUPERVISING PHYSICIAN: Dr. Noah Marc * (DICTATED BY ÁLVARO SHEPARD) PRIMARY DISCHARGE DIAGNOSES: 1. Transient ischemic attack - evidence of old cardiovascular accident on MRI. Discharged on dual antiplatelet therapy for 3 months. 2. Chronic systolic heart failure with EF measured at 40% to 45% with some focal wall motion abnormality appreciated, perhaps indicative of an old myocardial infarction without evidence of acute coronary syndrome - recommend outpatient nuclear stress testing for further risk stratification if not completed recently. SECONDARY DISCHARGE DIAGNOSES: 1. Peripheral vascular disease with history of fem-pop bypass and recent abdominal aortic aneurysm repair. 2. Chronic obstructive pulmonary disease without acute exacerbation. 3. Hypertension - not adequately controlled during this hospitalization. 4. Hyperlipidemia. DISCHARGE MEDICATIONS: 1. Acetaminophen 500 mg p.o. q.6 hours as needed for pain. 2. Albuterol inhaler 2 puffs inhaled twice daily as needed for shortness of breath. 3. Amlodipine 10 mg p.o. daily. 4. Aspirin 325 mg p.o. daily. 5. Atorvastatin 40 mg p.o. daily. 6. Symbicort 2 puffs inhaled twice daily. 7. Plavix 75 mg p.o. daily. 8. Omeprazole 20 mg p.o. daily. Medication changes: 1. Increase amlodipine. 2. Increase atorvastatin. 3. Start Plavix. HOSPITAL IMAGIN. Abdominal x-ray shows bilateral nephrolithiasis and an aortic stent graft. No acute process. 2. CT of the brain shows an old right cerebellar infarct with mild to chronic ischemic white matter changes. No intracranial mass or hemorrhage noted. 3. Chest x-ray shows nothing acute. 4. CTA of the head shows 50% stenosis of the right internal carotid artery with 60% stenosis of the left internal carotid. There is a complex ulcerated plaque of the right carotid bifurcation. No aneurysm, vascular malformation, occlusion or other significant stenosis noted. 5. MRI of the brain. Old right cerebellar infarct with chronic ischemic white matter change, but no evidence of acute infarct. 6. Transthoracic echocardiogram shows left ventricular ejection fraction of 45 % to 50% with some diastolic dysfunction. There is wall motion change at the basal inferior wall segment. No PFO. No significant valvular disease. HOSPITAL COURSE: This is a 72-year-old gentleman with a significant vascular history including fem-pop bypass and recent AAA repair in July of this past year as well as COPD, hypertension and hyperlipidemia, who presented to the emergency department with right facial numbness, droop as well as garbled speech and some mild confusion. The patient's symptoms started approximately at 9:30 in the morning of his acute hospitalization. His initial symptoms were some garbled speech and some confusion noted by his significant other. His significant other had prompted him to present to the emergency department at that time, but patient was resistant and a couple of hours later then developed facial droop and a tingling sensation in the right side of his face as well as a tingling sensation in his right arm, fingers, and both lower extremities. The patient then came to the emergency department for evaluation and his symptoms spontaneously improved within 30 minutes of arrival. Initial CT of the brain suggested an old infarct in the right cerebellar region, but no acute findings. Initial labs including a CBC and comprehensive metabolic panel were significant only for mildly elevated creatinine. The patient was subsequently admitted with concern for a TIA. He underwent a CTA of the head and neck, which demonstrated approximately 50% stenosis of both internal carotid arteries with an ulcerated plaque on the right side at the level of the carotid bifurcation. MRI of the brain did not show any new infarct but did confirm the presence of an old cerebellar infarct which the patient does not recall an acute event that would have matched those symptoms. He underwent an echocardiogram, which showed a mildly depressed ejection fraction with associated hypokinesis of the inferior basal segment of the heart perhaps indicative of an old WA. Again, the patient does not recall a history that would correspond with that. His fasting lipid panel showed an LDL slightly above target measured at 86 mg/dL. The patient also provides a history that up until the last couple of months, he had been on dual antiplatelet therapy with aspirin and Plavix. His Plavix has been discontinued in favor of a full dose aspirin following history of AAA repair. The patient remained asymptomatic throughout his hospital stay and after discussion with Neurology, decision was made to put him back on dual antiplatelet therapy for at least a period of 3 months given his significant vascular history, evidence of old CVA and failure on aspirin therapy. Given that his LDL was above target, his atorvastatin was also increased. He was also noted to be hypertensive during his hospital stay and his amlodipine was increased. DISPOSITION AND FOLLOWUP PLAN: The patient is being discharged to home where he lives with his significant other. Medication changes as outlined above. The patient requires close followup with his primary care provider regarding this hospitalization. I also recommend that he follow up with his vascular surgeon regarding changes made to his antiplatelet regimen. The patient is strongly encouraged to quit smoking, which he seemed to be motivated to do. Also recommend following up on his abnormal echocardiogram with a nuclear stress test to evaluate for areas of ischemia that may require diagnostic cardiac catheterization. ÁLVARO SHEPARD [id number]/[facility] #: [id number] GARCIA
== END 2017-08-26 10:25 | disposition home or self-care (01) ==
LOC: ED 12:13 → MEDTELE 15:24
PROVIDERS: ADMIT Internal Medicine; ATTEND Internal Medicine
DX: G45.9 Transient cerebral ischemic attack, unspecified (principal); I50.22 Chronic systolic (congestive) heart failure; I73.9 Peripheral vascular disease, unspecified; J44.9 Chronic obstructive pulmonary disease, unspecified; I10 Essential (primary) hypertension; E78.5 Hyperlipidemia, unspecified; Z79.82 Long term (current) use of aspirin; Z79.899 Other long term (current) drug therapy; F17.200 Nicotine dependence, unspecified, uncomplicated; Z88.1 Allergy status to other antibiotic agents; Z91.09 Other allergy status, other than to drugs and biological substances; I70.90 Unspecified atherosclerosis
CPT/HCPCS: 36415; 70450; 70496; 70498; 70551; 71010; 74000; 80048; 80053; 80061; 81003; 81015; 82607; 82746; 83090; 83605; 84439; 84443; 84484; 85025; 85610; 85730; 86850; 86900; 86901; 93005; 93306; 94640; 94760; 99285; A9270-GY; G0378; J1650; J3420; Q9967

== ENCOUNTER 2017-10-08 15:57 | Observation (INO) | payer OTHER ==
[2017-10-08] MEDS ORDERED: diPHENhydraMINE IV* 50 MG/ML 1 ml VIAL (BENADRYL) IV ONE (16:16)
[2017-10-08] MEDS ORDERED: methylPREDNISolone 125 MG* 2 ML VIAL IV ONE (16:19)
[2017-10-08] MEDS ORDERED: Famotidine IV* 10 MG/ML 2 ML (20 mg) IV SLOW PU ONE (16:19)
--- NOTE | 2017-10-08 17:51 | ED ---
Husam Horan Tecjoon, scribed for Garett Nj MD on 10/08/17 at 1622 . Allergic Reaction/Systemic - HPI Summary HPI Summary: This patient is a 72 year old male presenting to [facility] accompanied by female film laboratory technician with a chief complaint of allergic reaction since earlier today. Patient states that his tongue is swollen and he cannot swallow or chew as comfortably. Patient denies any breathing problems or tightness in the throat. Symptoms aggravated by nothing. Symptoms alleviated by nothing. Patient has a history of COPD and CHF, and is a former smoker. Patient takes Lisinopril. - History of Current Complaint Chief Complaint: EDAllergicReaction Time Seen by Provider: 10/08/17 16:11 Hx Obtained From: Patient Onset/Duration: Sudden Onset, Started hours ago, Still Present Timing: Constant Severity Currently: Mild Pain Intensity: 0 Pain Scale Used: 0-10 Numeric Character: Swelling Aggravating Factor(s): Nothing Associated Signs And Symptoms: Positive: Negative - tightness in throat, dyspnea - Allergies/Home Medications Allergies/Adverse Reactions: Allergies Allergy/AdvReac Type Severity Reaction Status Date / Time Amoxicillin [From Augmentin] AdvReac Vomiting Verified 10/08/17 16:10 Clavulanic Acid AdvReac Vomiting Verified 10/08/17 16:10 [From Augmentin] PMH/Surg Hx/FS Hx/Imm Hx Previously Healthy: No Endocrine/Hematology History: Reports: Hx Anemia Cardiovascular History: Reports: Hx Aneurysm - AAA - REPAIR, Hx Deep Vein Thrombosis, Hx Hypercholesterolemia, Hx Hypertension, Hx Valvular Heart Disease , Other Cardiovascular Problems/Disorders - EF 45-50, carotid stenosis, tricuspid and mitral regurgitation Denies: Hx Pacemaker/ICD Respiratory History: Reports: Hx Chronic Obstructive Pulmonary Disease (COPD) GI History: Reports: Hx Gastroesophageal Reflux Disease Sensory History: Reports: Hx Contacts or Glasses, Hx Hearing Aid Opthamlomology History: Reports: Hx Contacts or Glasses Neurological History: Reports: Hx Transient Ischemic Attacks (TIA) Psychiatric History: Denies: Hx Panic Disorder - Surgical History Surgery Procedure, Year, and Place: AAA repair, inguinal hernia repair, L finger partial amputation, 2 fem-pops Infectious Disease History: No Infectious Disease History: Denies: Traveled Outside the [place] in Last 30 Days - Family History Known Family History: Negative: Diabetes - Social History Alcohol Use: 1 BEER PER DAY Alcohol Amount: 1 beer daily Hx Substance Use: No Substance Use Type: Reports: None Hx Tobacco Use: Yes Smoking Status (MU): Former Smoker Do You Chew or Dip Tobacco: No Have You Chewed or Dipped Tobacco in the LAST YEAR: No Have You Smoked in the Last Year: Yes Review of Systems Negative: Fever Positive: Other - swollen tongue Negative: Shortness Of Breath Genitourinary: Negative - urinary problems All Other Systems Reviewed And Are Negative: Yes Physical Exam Triage Information Reviewed: Yes Vital Signs On Initial Exam: Initial Vitals Temp Pulse Resp BP Pulse Ox 98.0 F 78 20 175/89 94 10/08/17 15:59 10/08/17 15:59 10/08/17 15:59 10/08/17 15:59 10/08/17 15:59 Vital Signs Reviewed: Yes Appearance: Positive: Well-Appearing, No Pain Distress Skin: Positive: Warm, Skin Color Reflects Adequate Perfusion Head/Face: Positive: Normal Head/Face Inspection ENT: Positive: Other - angioedema of lip lower and tongue with swelling. no drooling and no stridor. Negative: Muffled voice, Hoarse voice Neck: Positive: Nontender Respiratory/Lung Sounds: Positive: Clear to Auscultation, Breath Sounds Present Cardiovascular: Positive: RRR. Negative: Murmur Abdomen Description: Positive: Nontender Musculoskeletal: Positive: Strength/ROM Intact Neurological: Positive: Sensory/Motor Intact, Alert, Oriented to Person Place, Time, CN Intact II-III Psychiatric: Positive: Normal - [place] Coma Scale Best Eye Response: 4 - Spontaneous Best Motor Response: 6 - Obeys Commands Best Verbal Response: 5 - Oriented Coma Scale Total: 15 Diagnostics - Vital Signs Vital Signs Temp Pulse Resp BP Pulse Ox 10/08/17 15:59 98.0 F 78 20 175/89 94 - Laboratory Lab Statement: Any lab studies that have been ordered have been reviewed, and results considered in the medical decision making process. Re-Evaluation - Re-Evaluation First Eval Re-Evaluation Time: 17:51 Change: Improved Comment: the swelling of tongue and lower lip are improving. Allergic Reaction Course/Dx - Course Course Of Treatment: 72 yr old with angioedema. Admit to medicine. - Diagnoses Provider Diagnoses: Angio-edema - Critical Care Time Critical Care Time: 30-74 min Discharge - Discharge Plan Condition: Good Disposition: ADMITTED TO [facility] Referrals: Ugo Leiva MD [Primary Care Provider] - The documentation as recorded by the Husam alcaraz Tecjoon accurately reflects the service I personally performed and the decisions made by me, Garett Nj MD.
[2017-10-08 18:19] LABS: ABS Basophils 0.1 10^3/ul (0-0.2); ABS Eosinophils 0.5 10^3/ul (0-0.6); ABS Lymphocytes 1.1 10^3/ul (1.0-4.8); ABS Monocytes 0.4 10^3/ul (0-0.8); ABS Neutrophils 5.7 10^3/ul (1.5-7.7); ABS Nucleated RBC 0 10^3/ul; Eosinophil % 6.9 % (0-6); Hematocrit 34 % (42-52); Hemoglobin 11.4 g/dl (14.0-18.0); Lymphocyte % 13.7 % (25-47); Mean Corpuscular HGB Conc 33 g/dl (31-36); Mean Corpuscular Hemoglobin 30 pg (27-31); Mean Corpuscular Volume 91 fL (80-94); Mean Platelet Volume 8 um3 (7.4-10.4); Nucleated Red Blood Cells % 0; Platelet Count 207 10^3/ul (150-450); Red Blood Count 3.77 10^6/ul (4.0-5.4); Red Cell Distribution Width 16 % (10.5-15); White Blood Count 7.7 10^3/ul (3.5-10.8)
[2017-10-08 18:33] LABS: EGFR Non-African American 49.1 (>60)
[2017-10-08] MEDS ORDERED: Acetaminophen TAB* 325 MG PO PRN (19:35)
[2017-10-08] MEDS ORDERED: Albuterol 2.5 MG/3 ML NEB.SOL* (0.083%) INH PRN (19:35)
[2017-10-08] MEDS ORDERED: Ondansetron INJ* 2 MG/ML VIAL IV PRN (19:35)
[2017-10-08] MEDS ORDERED: diPHENhydraMINE PO* 25 MG PO PRN (19:35)
--- NOTE | 2017-10-08 20:23 | RAD ---
Indication: Cough, COPD. History of tobacco use. Cardiac disease. Comparison: September 30, 2017 Technique: Upright AP 1955 hours Report: Elevated lung volumes and both diffuse mild prominence of the interstitial markings and patchy rarefaction of the mid to upper lung zone interstitial markings. No focal pulmonary lesion, compelling alveolar consolidation, pleural effusion, pneumothorax. The heart, pulmonary vasculature, and mediastinal contours are unremarkable. IMPRESSION: Stigmata of obstructive lung disease. No acute pulmonary or cardiac process evident.
[2017-10-08] MEDS ORDERED: Mometasone/Formoter 200/5 MDI INH SCH (21:00)
[2017-10-08] MEDS ORDERED: Famotidine IV * 20 MG in NS 0.9% 100 ML* 100 ML IVPB SCH (21:00)
[2017-10-08] MEDS ORDERED: amLODIPine TAB* 5 MG ONE (21:39)
[2017-10-08] MEDS: Carvedilol TAB* 6.25 MG PO SCH (21:50)
[2017-10-08] MEDS: Famotidine IV* 10 MG/ML 2 ML (20 mg) IV SCH (21:50)
[2017-10-08] MEDS: amLODIPine TAB* 5 MG PO SCH (21:50)
[2017-10-08] MEDS: Heparin VIAL(*) 5000 UNITS/ML VIAL (FIVE THOUSAND) SUBCUT SCH (21:50)
[2017-10-08] MEDS: predniSONE TAB* 20 MG PO SCH (21:50)
--- NOTE | 2017-10-08 23:08 | HP ---
CC: Dr. Leiva * HISTORY AND PHYSICAL: DATE OF ADMISSION: 10/08/17 PRIMARY CARE PROVIDER: Dr. Leiva. ATTENDING PHYSICIAN WHILE IN THE HOSPITAL: Dr. Nuno * (report being dictated by Sarthak Lopez NP) CHIEF COMPLAINT: Tongue swelling. HISTORY OF PRESENT ILLNESS: Mr. Bryant is a 72-year-old male patient who has a vasculopath. He has a history of peripheral vascular disease. He has had a AAA, he has had it repaired 3 times. COPD, hypertension, hyperlipidemia. Recently here, diagnosed in August with TIA and old CVA and also found to be a new CHF with presumed previous AZ. He comes in to our ER today. He says around 12:30 today, he was outside, he was snow blowing in the driveway. Recently when he was discharged in August was placed on an SAKSHI inhibitor, also restarted back on Plavix. Albuterol was added. In addition to this, he also was started on Coreg. He noted around 12:30 that his tongue was starting to get swollen. He took nebulizer treatment and thought maybe it would help. Took a Benadryl with no help. He went inside and his tongue slowly progressively got worse and worse and more swollen to the point where he was having trouble swallowing. He was initially going to try to get in to see Dr. Leiva, but the was concerned as was the patient because his tongue was getting bigger. Family says that to their knowledge, his lips were not getting any bigger. There was no hives or rashes. He denied having any shortness of breath or trouble breathing. He just said his tongue was getting big. He was having trouble swallowing. He came in to the ED. It appeared that he had what appeared to be angioedema and was given steroids, Benadryl and famotidine and he improved drastically. He says his tongue is better now. He is able to swallow and it is much smaller than it was. He denies any shortness of breath, denies having any chest pain. He does state that he has been having issues with shortness of breath in the morning when he gets up around 3:30 in the morning and 6:00 in the morning he gets short of breath and he will take a nap, which has been helping him. He denied having any weight changes and denied having any orthopnea or any chest discomfort. There was concern because of the angioedema and the hospitalist service was asked to evaluate for admission. PAST MEDICAL HISTORY: Significant for: 1. PVD. 2. AAA. 3. COPD. 4. Hypertension. 5. Hyperlipidemia. 6. TIA. 7. CVA in the past. 8. CHF. Last known EF was 40% to 45%. 9. History of AZ. PAST SURGICAL HISTORY: 1. He has had fem-pop bypass bilaterally. 2. He has had a AAA repair x3 graft. 3. He has had a left inguinal hernia repair. 4. He has had finger amputation. MEDICATIONS: His home meds include: 1. Lisinopril 5 mg daily. 2. Spiriva 1 inhalation daily. 3. DuoNeb 1 neb inhaled every 6 hours. 4. Coreg 6.25 mg p.o. b.i.d. 5. Plavix 75 mg daily. 6. Tylenol extra strength 500 mg every 6 hours as needed. 7. Ventolin 2 puffs inhaled every 6 hours. 8. Symbicort 2 puffs inhaled b.i.d. 9. Lipitor 80 mg daily. 10. Aspirin 325 mg daily. 11. Prilosec 20 mg daily. ALLERGIES: Include AUGMENTIN and now SAKSHI INHIBITORS. FAMILY HISTORY: Unknown as he is adopted. SOCIAL HISTORY: He is a smoker. He says he quit a couple of weeks ago, but he has been smoking for about 50 plus years about a pack a day. He does drink 1 to 2 beers a day. Surrogate decision making is his significant other, Maki. REVIEW OF SYSTEMS: There is no documented fever. He denied having any significant weight change. There was no double vision. He denies having any ear discharge. There was no rhinorrhea, no sore throat, no thyroid enlargement. He denied having any chest pain. There was no orthopnea. There is no nocturnal dyspnea. He denied having any abdominal pain. There was no nausea, no vomiting, no dysuria, no frequency. There was no loss of consciousness, no pruritus, and no skin ulcerations. Review of 14 systems was completed, all others negative. PHYSICAL EXAMINATION GENERAL: At this time, Mr. Bryant is a 72-year-old male patient. He is sitting in the ED stretcher. He does not appear to be in any acute distress. VITAL SIGNS: Initially, blood pressure 175/89, pulse 78, respirations 20, O2 saturation 94%, temperature 98.0. HEENT: Head is atraumatic, normocephalic. Eyes. EOMs intact. Sclerae anicteric, not pale. Throat: Oral mucosa appears to be moist. No oropharyngeal erythema. He has no stridor. No adenopathy noted on exam. He has some minimal swelling of the tongue, but again it has improved subjectively according to the family. There was again no stridor and he is controlling his secretions. NECK: Supple. RESPIRATORY: Lungs are clear to auscultation bilaterally. No wheezes, rales or rhonchi. CARDIOVASCULAR: Heart sounds S1 and S2. Regular rate and rhythm. No murmurs, rubs, or gallops. ABDOMEN: Soft, flat, nontender. Bowel sounds present. EXTREMITIES: Pulses were 2+ throughout. He had no peripheral edema. He had 5/ 5 strength. NEURO: He is awake, alert, and oriented x3. No gross focal deficits. SKIN: Intact. LABORATORY DATA: WBC of 7.7, RBC of 3.77, hemoglobin 11.4, hematocrit 34, platelet count 207,000. Sodium 138, potassium 4, chloride of 104, bicarb 26, BUN 13, creatinine 1.42 which is right near his baseline, glucose 89, calcium 9.2. Total bili 0.6, AST 8, ALT 7, alk phos 60, albumin is 3.5. Old medical records were reviewed. ASSESSMENT AND PLAN: Mr. Bryant is a 72-year-old male patient with extensive vascular history, coming into the ED today with complaints of tongue swelling. We were asked to evaluate for admission. He will be admitted under observation status for: 1. Angioedema. I suspect the patient had angioedema probably from the lisinopril. At this point, I am going to hold off on giving obviously anymore lisinopril as he is allergic. I am not going to start him on an ARB, but he will probably at some point need to be put on an ARB. For the time being, I am just going to put the patient on steroids, Benadryl and Pepcid and we will place him in the ICU for airway watch in case he has any recurrence of this angioedema. We will continue to follow him closely. 2. Peripheral vascular disease. Continue the patient's statin, aspirin and beta- rosalee. 3. Hyperlipidemia. Continue statin therapy. 4. Hypertension. Continue meds as prescribed. If his blood pressure remains elevated, I probably will put him on Norvasc as he has been on this previously and tolerated it well, but again at some point, he should be on a low dose ARB because of the history of congestive heart failure and LV dysfunction. 5. History of transient ischemic attack and cerebrovascular accident. Continue his aspirin, statin therapy and Plavix and secondary prevention. 6. History of congestive heart failure. He does not appear to be in failure. We will follow. 7. Chronic obstructive pulmonary disease. Continue his nebs as prescribed. 8. History of myocardial infarction. Continue statin, beta-rosalee, aspirin therapy and Plavix. 9. DVT prophylaxis. He will be placed on heparin subcu. 10. Code status. He is full code. 11. Fluid, electrolytes, and nutrition. He can have a heart healthy diet. TIME SPENT: On the admission was 60 minutes, greater than half the time spent face- to-face with the patient obtaining my history and physical, the other half time was spent going over the plan of care with the patient and implementing plan of care. I did discuss the plan of care with my attending, Dr. Nuno; he is in agreement. SARTHAK LOPEZ NP [id number]/[facility] #: [id number] GARCIA
[2017-10-09 05:42] LABS: ABS Basophils 0 10^3/ul (0-0.2); ABS Eosinophils 0 10^3/ul (0-0.6); ABS Lymphocytes 0.6 10^3/ul (1.0-4.8); ABS Monocytes 0.1 10^3/ul (0-0.8); ABS Neutrophils 6.5 10^3/ul (1.5-7.7); ABS Nucleated RBC 0 10^3/ul; Eosinophil % 0 % (0-6); Hematocrit 37 % (42-52); Hemoglobin 12.3 g/dl (14.0-18.0); Lymphocyte % 8.4 % (25-47); Mean Corpuscular HGB Conc 34 g/dl (31-36); Mean Corpuscular Hemoglobin 31 pg (27-31); Mean Corpuscular Volume 91 fL (80-94); Mean Platelet Volume 8 um3 (7.4-10.4); Nucleated Red Blood Cells % 0.1; Platelet Count 239 10^3/ul (150-450); Red Blood Count 4.05 10^6/ul (4.0-5.4); Red Cell Distribution Width 16 % (10.5-15); White Blood Count 7.3 10^3/ul (3.5-10.8)
[2017-10-09 06:01] LABS: EGFR Non-African American 49.5 (>60)
[2017-10-09] MEDS: Heparin VIAL(*) 5000 UNITS/ML VIAL (FIVE THOUSAND) SUBCUT SCH (06:39)
[2017-10-09] MEDS ORDERED: Clopidogrel TAB* 75 MG PO SCH (09:00)
[2017-10-09] MEDS ORDERED: Aspirin TAB* 325 MG PO SCH (09:00)
[2017-10-09] MEDS ORDERED: Atorvastatin* 80 MG TAB PO SCH (09:00)
[2017-10-09] MEDS ORDERED: Spiriva Inhaler DEVICE* 1 EACH DEVICE INH ONE (09:00)
[2017-10-09] MEDS ORDERED: CMCS: Pantoprazole TAB (NF) 40 MG TAB PO SCH (09:00)
[2017-10-09] MEDS ORDERED: Tiotropium CAP.INH* CAP.INH/18 MCG (USE ORDER SET !) INH SCH (09:00)
[2017-10-09] MEDS: amLODIPine TAB* 5 MG PO SCH (09:14)
[2017-10-09] MEDS: Famotidine IV* 10 MG/ML 2 ML (20 mg) IV SCH (09:14)
[2017-10-09] MEDS: Carvedilol TAB* 6.25 MG PO SCH (09:15)
[2017-10-09 09:31] VITALS: BP 173/102
[2017-10-09] MEDS: predniSONE TAB* 20 MG PO SCH (09:33)
--- NOTE | 2017-10-10 10:28 | DS ---
CC: Dr. Leiva * DISCHARGE SUMMARY: DATE OF ADMISSION: DATE OF DISCHARGE: PRIMARY CARE PROVIDER: Dr. Leiva. MY ATTENDING WHILE IN THE HOSPITAL: Dr. Gurvinder Nuno * (DICTATED BY ÁLVARO WARREN) PRIMARY DISCHARGE DIAGNOSIS: Angioedema related to SAKSHI inhibitor most primarily affecting the tongue. SECONDARY DISCHARGE DIAGNOSES: 1. Peripheral vascular disease. 2. Abdominal aortic aneurysm. 3. Chronic obstructive pulmonary disease. 4. Hypertension. 5. Hyperlipidemia. 6. Transient ischemic attack. 7. Congestive heart failure , systolic. 8. History of myocardial infarction. STUDIES DONE WHILE IN THE HOSPITAL: Chest x-ray from 10/08/17 read as stigmata of COPD, no acute pulmonary or cardiac process evident. MEDICATIONS: At discharge: 1. Symbicort 164.5 two puffs inhalation b.i.d. 2. Albuterol 2 puffs inhalation q.6 hours as needed. 3. Tylenol 500 mg p.o. q.6 hours as needed. 4. Aspirin 325 mg p.o. daily. 5. Lipitor 80 mg p.o. daily. 6. Clopidogrel 75 mg p.o. daily. 7. DuoNeb nebulized solution, 1 nebulizer inhalation q.6 hours. 8. Carvedilol 6.25 mg p.o. b.i.d. 9. Spiriva inhaler 1 inhalation p.o. daily. 10. Amlodipine 10 mg p.o. daily. 11. Benadryl 50 mg p.o. q.8 hours x5 days. 12. Pepcid 20 mg p.o. b.i.d. x5 days. 13. Pantoprazole 40 mg p.o. daily. 14. Prednisone 60 mg p.o. daily with a taper. New medications at discharge: 1. Amlodipine. 2. Benadryl. 3. Pepcid. 4. Protonix. 5. Prednisone. Medications discontinued at discharge: 1. Omeprazole. 2. Lisinopril. HOSPITAL COURSE: This is a brief summary of the patient's presentation. For more details, please see the history and physical from Sarthak Lopez NP, from 10/08/17. In brief, the patient is a 72-year-old male with a past medical history as stated above, who presented to the ER, he was in his normal state of health and working in his driveway and his tongue started to get swollen around 12:30 on 10/08/17. The patient took nebulizer and Benadryl with no help and it continued to worsen until when he had trouble swallowing. The patient went to the emergency department. The patient was given steroids, Benadryl, and famotidine, and improved drastically. The patient was never hypoxic. The patient did not need to be intubated. The patient was admitted to the ICU for close pulmonary monitoring. The patient was initially hypertensive in the emergency department and then became briefly hypotensive. The patient had a hemoglobin of 11.4 on lab work and a creatinine of 1.42, which is his baseline and a BNP of 219. It showed no other pertinent laboratory abnormalities. The patient had negative influenza. The patient had no other significant abnormalities. The patient felt great in the morning and stated his tongue was back to normal size. The patient was medically discharged on his Benadryl, Pepcid, and prednisone treatment. PHYSICAL EXAMINATION ON DAY OF DISCHARGE: General: The patient is a 72-year- old male, who appears stated age and sitting comfortably in the bed, in no acute distress. Vital Signs: At the time of discharge, heart rate 82, respiratory rate 19, oxygen saturation 90% on room air, blood pressure 173/102. HEENT: Head, normocephalic, atraumatic. Sclerae anicteric. No conjunctival injection. Nasal mucosa moist. Oral mucosa moist. Tongue normal size. Airway not obstructed. Secretion handled appropriate, no drooling. Neck: Supple, nontender. No lymphadenopathy. No carotid bruit auscultated. Cardiac : Regular rate and rhythm. No clicks, murmurs, gallops, or rubs. Pulses 2+ in the bilateral dorsalis pedis, posterior tibialis, and radial areas. No edema noted in the bilateral lower extremities. Respiratory: Clear to auscultation bilaterally. No wheezes, rales, or rhonchi. Abdomen: Soft, nontender, nondistended. No abdominal bruits auscultated. No hepatosplenomegaly. Genitourinary: No suprapubic tenderness or CVA tenderness. Skin: No rash. Clean, dry, intact. Neuro: Cranial nerves II through XII grossly intact. Alert and oriented x3. No focal deficits. Psychiatric: Pleasant and cooperative. LABORATORY DATA: On day of discharge, white blood cell count 7.3, hemoglobin 12.3, hematocrit 37, RDW is 16, platelet count 239. Sodium 135, potassium 4.4, chloride 103, carbon dioxide 22, anion gap 10, BUN 17, creatinine 1.41, glucose 151, calcium 9.5. DISCHARGE PLAN: The patient will be discharged to home on a prednisone taper, Benadryl t.i.d., Pepcid b.i.d. The patient also will be switched from omeprazole to pantoprazole due to interaction between omeprazole and clopidogrel. The patient will also be switched from lisinopril to amlodipine for the time being, but should be transitioned to ARB due to his systolic congestive heart failure. The patient was not started on ARBs due to possible concerns for repeat angioedema, however, this is unlikely. The patient should engage in activity as tolerated and have a heart-healthy diet without caffeine. TIME SPENT: Approximately 60 minutes was spent on this discharge, 30 of which was spent [id number] with the patient obtaining history and physical and discussing treatment plan. ÁLVARO WARREN [id number]/[facility] #: [id number] GARCIA
== END 2017-10-09 10:41 | disposition home or self-care (01) ==
LOC: ED 15:57 → ICU 20:09
PROVIDERS: ADMIT Internal Medicine; ATTEND Internal Medicine
DX: T78.3XXA Angioneurotic edema, initial encounter (principal); X58.XXXA Exposure to other specified factors, initial encounter; I73.9 Peripheral vascular disease, unspecified; I71.4 Abdominal aortic aneurysm, without rupture; J44.9 Chronic obstructive pulmonary disease, unspecified; E78.5 Hyperlipidemia, unspecified; Z86.73 Personal history of transient ischemic attack (TIA), and cerebral infarction without residual deficits; I11.0 Hypertensive heart disease with heart failure; I50.9 Heart failure, unspecified; I25.2 Old myocardial infarction; Z79.899 Other long term (current) drug therapy; Z88.0 Allergy status to penicillin; Z88.8 Allergy status to other drugs, medicaments and biological substances; F17.210 Nicotine dependence, cigarettes, uncomplicated
CPT/HCPCS: 36415; 71045; 80048; 80053; 83880; 85025; 87502; 96372; 96374; 96375; 99291; A9270-GY; G0378; J1200; J1644; J2930; J7512

== ENCOUNTER 2018-08-24 15:51 | Emergency (ER) | payer MEDICARE, OTHER ==
--- NOTE | 2018-08-24 16:09 | ED ---
Shortness of Breath - HPI Summary HPI Summary: A 73 y/o M who was sent from the [place] clinic by Dr. Leiva for evaluation for hypertensive BP and HOWARD. 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 [facility] a [facility]. He says it's taking longer than normal to get his breathing back to normal after he exerts himself. PMHx: COPD. Associated sx: sinus congestion (which is worse at night.) Denies: dizziness, CP, LE edema or pain. He states being medication compliant. No previous hx blood clots. - History of Current Complaint Chief Complaint: EDShortnessOfBreath Time Seen by Provider: 08/24/18 15:55 Hx Obtained From: Patient Onset/Duration: Still Present Timing: Constant Dyspnea At: Exertion Aggrevating Factors: Other - night time Associated Signs & Symptoms: Nasal Congestion - Allergy/Home Medications Allergies/Adverse Reactions: Allergies Allergy/AdvReac Type Severity Reaction Status Date / Time SAKSHI Inhibitors Allergy See Comment Verified 08/24/18 16:56 amoxicillin [From Augmentin] Allergy Vomiting Verified 08/24/18 15:59 clavulanic acid Allergy Vomiting Verified 08/24/18 15:59 [From Augmentin] PMH/Surg Hx/FS Hx/Imm Hx Previously Healthy: No Endocrine/Hematology History: Reports: Hx Anemia Cardiovascular History: Reports: Hx Aneurysm - AAA - REPAIR, Hx Deep Vein Thrombosis, Hx Hypercholesterolemia, Hx Hypertension, Hx Valvular Heart Disease , Other Cardiovascular Problems/Disorders - EF 45-50, carotid stenosis, tricuspid and mitral regurgitation Denies: Hx Pacemaker/ICD Respiratory History: Reports: Hx Chronic Obstructive Pulmonary Disease (COPD), Hx Pneumonia GI History: Reports: Hx Gastroesophageal Reflux Disease Sensory History: Reports: Hx Contacts or Glasses, Hx Hearing Aid Opthamlomology History: Reports: Hx Contacts or Glasses Neurological History: Reports: Hx Transient Ischemic Attacks (TIA) Psychiatric History: Denies: Hx Panic Disorder - Surgical History Surgery Procedure, Year, and Place: AAA repair, inguinal hernia repair, L finger partial amputation, 2 fem-pops Infectious Disease History: No Infectious Disease History: Denies: Traveled Outside the [place] in Last 30 Days - Family History Known Family History: Negative: Diabetes - Social History Occupation: Disabled Lives: With Family Alcohol Use: None Alcohol Amount: 1 beer daily Hx Substance Use: No Substance Use Type: Reports: None Hx Tobacco Use: Yes Smoking Status (MU): Former Smoker Have You Smoked in the Last Year: Yes Review of Systems Negative: Fever, Chills Negative: Erythema Positive: Other - pos: sinus congestion. Negative: Sore Throat Negative: Chest Pain Positive: Shortness Of Breath - HOWARD. Negative: Cough Negative: Abdominal Pain, Vomiting, Nausea Negative: dysuria, hematuria Negative: Myalgia, Edema Negative: Rash Neurological: Other - neg: dizziness All Other Systems Reviewed And Are Negative: Yes Physical Exam - Summary Physical Exam Summary: Constitutional: Well-developed, Well-nourished, Alert. (-) Distressed Skin: Warm, Dry HENT: Normocephalic; Atraumatic; dry mucous membranes Eyes: Conjunctiva normal Neck: Musculoskeletal ROM normal neck. (-) JVD, (-) Stridor, (-) Tracheal deviation Cardio: Rhythm regular, rate normal, Heart sounds normal; Intact distal pulses; The pedal pulses are 2+ and symmetric. Radial pulses are 2+ and symmetric. (-) Murmur Pulmonary/Chest wall: Effort normal. R-sided crackles, Rhonchi in R lower lung field Abd: Soft, (-) epigastric tenderness, (-) Distension, (-) Guarding, (-) Rebound Musculoskeletal: (-) Edema Lymph: (-) Cervical adenopathy Neuro: Alert, Oriented x3 Psych: Mood and affect Normal Triage Information Reviewed: Yes Vital Signs On Initial Exam: Initial Vitals Temp Pulse Resp BP Pulse Ox 98.6 F 85 20 164/103 94 08/24/18 15:56 08/24/18 15:56 08/24/18 15:56 08/24/18 15:56 08/24/18 15:56 Vital Signs Reviewed: Yes Diagnostics - Vital Signs Vital Signs Temp Pulse Resp BP Pulse Ox 08/24/18 15:56 98.6 F 85 20 164/103 94 - Laboratory Result Diagrams: 08/24/18 16:15 08/24/18 16:15 Lab Statement: Any lab studies that have been ordered have been reviewed, and results considered in the medical decision making process. - Radiology CXR Radiology Interpretation Completed By: Radiologist Summary of Radiographic Findings: IMPRESSION: HYPERINFLATION, CONSISTENT WITH COPD. NO ACTIVE CARDIOPULMONARY DISEASE. ED provider has reviewed this report. - EKG 1605 Cardiac Rate: NL - 85 bpm EKG Rhythm: Sinus Rhythm Summary of EKG Findings: No STEMI Re-Evaluation - Re-Evaluation 1 Re-Evaluation Time: 18:11 Change: Improved Comment: Discussing results with pt. Pt's home health provider is present and says he has had an increase in cough and congestion for past few days. Discussed with pt the plan to increase his prednisone to 40mg for the next 5 days and then to return to 5mg. Additionally advised pt to get his flu shot. Course/Dx - Course Course Of Treatment: Pt is a 73 y/o M with COPD who was sent from the [place] clinic by Dr. Leiva for evaluation for hypertensive BP and HOWARD. Pt says it's taking longer than normal to get his breathing back to normal after he exerts himself. CXR shows "HYPERINFLATION, CONSISTENT WITH COPD. NO ACTIVE CARDIOPULMONARY DISEASE." Lab work is unremarkable. Pt given duoneb and prednisone in ED. Upon re-eval, pt is feeling much improved. I discussed with pt the plan to increase his prednisone to 40mg for the next 5 days and then to return to 5mg. Additionally advised pt to get his flu shot. Will DC home with prednisone and doxycycline and to f/u with PCP in 2 days. - Diagnoses Provider Diagnoses: COPD exacerbation Discharge - Sign-Out/Discharge Documenting (check all that apply): Patient Departure - DC - Discharge Plan Condition: Stable Disposition: HOME Prescriptions: DOXYcycline CAP(*) [DOXYcycline 100MG CAP(*)] 100 mg PO BID #10 cap predniSONE TAB* [Deltasone 20 MG TAB*] 40 mg PO DAILY #5 tab Patient Education Materials: Doxycycline (By mouth), Prednisone (By mouth), COPD (Chronic Obstructive Pulmonary Disease) (ED) Referrals: Ugo Leiva MD [Primary Care Provider] - 2 Days Additional Instructions: As we discussed: Increase your Prednisone to 40mg for the next 5 days, and then return to a 5mg dose. I also recommend that you get a flu shot. Follow up with your primary care provider in 2 days. Please return to the Emergency Department if you experience new or worsening symptoms. - Attestation Statements Document Initiated by Scribe: Yes Documenting Scribe: SooYoung David Provider For Whom Scribe is Documenting (Include Credential): Dr. César Leon MD Scribe Attestation: Aung, Damir Hernandez, scribed for Dr. César Leon MD on 08/24/18 at 1821.
[2018-08-24] MEDS ORDERED: Albuterol/Ipratropium NEB.SOL* Albuterol 2.5 MG/Ipratropium 0.5 MG 3 ML INH ONE (16:11)
[2018-08-24 16:26] LABS: ABS Basophils 0.1 10^3/ul (0-0.2); ABS Eosinophils 0.1 10^3/ul (0-0.6); ABS Lymphocytes 1.2 10^3/ul (1.0-4.8); ABS Monocytes 0.6 10^3/ul (0-0.8); ABS Nucleated RBC 0 10^3/ul; Eosinophil % 1.5 % (0-6); Hematocrit 37 % (42-52); Hemoglobin 12.8 g/dl (14.0-18.0); Lymphocyte % 13.4 % (25-47); Mean Corpuscular HGB Conc 35 g/dl (31-36); Mean Corpuscular Hemoglobin 30 pg (27-31); Mean Corpuscular Volume 88 fL (80-94); Mean Platelet Volume 7.3 fL (7.4-10.4); Nucleated Red Blood Cells % 0.1; Platelet Count 278 10^3/ul (150-450); Red Blood Count 4.23 10^6/ul (4.00-5.40); Red Cell Distribution Width 15 % (10.5-15); White Blood Count 9.1 10^3/ul (3.5-10.8)
[2018-08-24 16:43] LABS: EGFR Non-African American 43.3 (>60)
[2018-08-24] MEDS ORDERED: methylPREDNISolone 125 MG* 2 ML VIAL IV ONE (17:33)
[2018-08-24 18:33] VITALS: BP 179/93
== END 2018-08-24 18:32 | disposition home or self-care (01) ==
LOC: ED 15:51
DX: J44.1 Chronic obstructive pulmonary disease with (acute) exacerbation (principal); Z87.891 Personal history of nicotine dependence; Z88.0 Allergy status to penicillin
CPT/HCPCS: 36415; 71046; 80053; 83605; 83880; 84484; 85025; 87040; 93005; 96374; 99282; A9270-GY; J2930

== ENCOUNTER 2019-03-07 10:39 | Emergency (ER) | payer MEDICARE, OTHER ==
[2019-03-07] MEDS ORDERED: methylPREDNISolone 125 MG* 2 ML VIAL IV ONE (10:50)
[2019-03-07] MEDS ORDERED: Albuterol/Ipratropium NEB.SOL* Albuterol 2.5 MG/Ipratropium 0.5 MG 3 ML INH ONE (10:50)
[2019-03-07 11:49] LABS: ABS Basophils 0.1 10^3/ul (0-0.2); ABS Eosinophils 0.1 10^3/ul (0-0.6); ABS Lymphocytes 0.6 10^3/ul (1.0-4.8); ABS Monocytes 0.7 10^3/ul (0-0.8); ABS Neutrophils 6.1 10^3/ul (1.5-7.7); Eosinophil % 1.9 %; Hematocrit 35 % (42-52); Hemoglobin 11.7 g/dL (14.0-18.0); Mean Corpuscular HGB Conc 34 g/dL (31-36); Mean Corpuscular Hemoglobin 29 pg (27-31); Mean Corpuscular Volume 87 fL (80-94); Nucleated Red Blood Cells % 0.2; Platelet Count 240 10^3/uL (150-450); Red Blood Count 3.98 10^6 /uL (4.18-5.48); Red Cell Distribution Width 16 % (10.5-15); White Blood Count 7.7 10^3/uL (3.5-10.8)
[2019-03-07 11:54] LABS: INR 1.04 (0.82-1.09)
[2019-03-07 12:06] LABS: Albumin 4.1 g/dL (3.2-5.2); Albumin/Globulin Ratio 1.2 (1-3); BUN/Creatinine Ratio 9.5 (8-20); C Reactive Protein 13.69 mg/L (<8.01); Calcium 9.9 mg/dL (8.6-10.3); EGFR African American 48.5 (>60); EGFR Non-African American 40.1 (>60); Globulin 3.4 g/dL (2-4); Potassium 4.4 mmol/L (3.5-5.0); Total Bilirubin 0.7 mg/dL (0.2-1.0); Total Protein 7.5 g/dL (6.4-8.9)
[2019-03-07 12:10] LABS: Troponin I 0.03 ng/mL (<0.04)
--- NOTE | 2019-03-07 13:06 | ED ---
Shortness of Breath - HPI Summary HPI Summary: Patient's a 73-year-old male with a 50+ year smoking history, and COPD with COPD exacerbations presented to the ED with shortness of breath which has been worsening over the past 2 days. He does have O2 at home but rarely uses this. Symptoms are not worse or better with positioning. He does state when he bends over to tie his shoes or pick something up, his symptoms worsen. He does not have persistent O2 at home, but states only when he is having SOB he will placed 2 L on. He quit smoking approximately 1.5 years ago. He is on a low- dose prednisone of 5 mg daily for his COPD. He denies any CP. Denies any abdominal pain, fevers, sweats, chills. He states he was attempting to wait until tomorrow to see his PCP, but is having worsening SOB with ambulation. He is not having any dyspnea with rest. - History of Current Complaint Chief Complaint: EDShortnessOfBreath Time Seen by Provider: 03/07/19 10:49 Hx Obtained From: Patient Onset/Duration: Sudden Onset Timing: Constant Current Severity: Moderate Dyspnea At: Exertion Associated Signs & Symptoms: Negative - Risk Factors Pulmonary Embolism: Negative Cardiac: Negative Pseudomonas: Chronic Lung Disease - Allergy/Home Medications Allergies/Adverse Reactions: Allergies Allergy/AdvReac Type Severity Reaction Status Date / Time SAKSHI Inhibitors Allergy See Comment Verified 03/07/19 10:48 amoxicillin [From Augmentin] Allergy Vomiting Verified 03/07/19 10:48 clavulanic acid Allergy Vomiting Verified 03/07/19 10:48 [From Augmentin] PMH/Surg Hx/FS Hx/Imm Hx Previously Healthy: Yes Endocrine/Hematology History: Reports: Hx Anemia Cardiovascular History: Reports: Hx Aneurysm - AAA - REPAIR, Hx Deep Vein Thrombosis, Hx Hypercholesterolemia, Hx Hypertension, Hx Valvular Heart Disease , Other Cardiovascular Problems/Disorders - EF 45-50, carotid stenosis, tricuspid and mitral regurgitation Denies: Hx Pacemaker/ICD Respiratory History: Reports: Hx Chronic Obstructive Pulmonary Disease (COPD), Hx Pneumonia GI History: Reports: Hx Gastroesophageal Reflux Disease Sensory History: Reports: Hx Contacts or Glasses, Hx Hearing Aid Opthamlomology History: Reports: Hx Contacts or Glasses Neurological History: Reports: Hx Transient Ischemic Attacks (TIA) Psychiatric History: Denies: Hx Panic Disorder - Surgical History Surgery Procedure, Year, and Place: AAA repair, inguinal hernia repair, L finger partial amputation, 2 fem-pops - Immunization History Hx Pertussis Vaccination: No Immunizations Up to Date: Yes Infectious Disease History: No Infectious Disease History: Denies: Traveled Outside the [place] in Last 30 Days - Family History Known Family History: Negative: Diabetes - Social History Occupation: Unemployed Lives: With Family Alcohol Use: None Alcohol Amount: 1 beer daily Hx Substance Use: No Substance Use Type: Reports: None Hx Tobacco Use: No Smoking Status (MU): Former Smoker Have You Smoked in the Last Year: Yes Review of Systems Constitutional: Negative Negative: Fever, Chills, Fatigue, Skin Diaphoresis Negative: Palpitations, Chest Pain Positive: Shortness Of Breath. Negative: Cough Negative: Abdominal Pain, Vomiting, Diarrhea, Nausea Genitourinary: Negative Positive: no symptoms reported, see HPI Negative: Arthralgia, Myalgia All Other Systems Reviewed And Are Negative: Yes Physical Exam Triage Information Reviewed: Yes Vital Signs On Initial Exam: Initial Vitals Temp Pulse Resp 98.3 F 102 40 03/07/19 10:42 03/07/19 10:42 03/07/19 10:42 Completion Of Physical Exam Limited Due To: Dementia Appearance: Positive: Well-Appearing, Well-Nourished Skin: Positive: Skin Color Reflects Adequate Perfusion Head/Face: Positive: Normal Head/Face Inspection Eyes: Positive: EOMI, Conjunctiva Clear Neck: Positive: Supple, No Lymphadenopathy Respiratory/Lung Sounds: Positive: Wheezes - Wheezing bilaterally Cardiovascular: Positive: RRR, Pulses are Symmetrical in both Upper and Lower Extremities, Tachycardia. Negative: Leg Edema Left, Leg Edema Right Musculoskeletal: Positive: Normal, Strength/ROM Intact Neurological: Positive: Alert, Oriented to Person Place, Time, Speech Normal Psychiatric: Positive: Affect/Mood Appropriate Diagnostics - Vital Signs Vital Signs Temp Pulse Resp BP Pulse Ox 03/07/19 12:46 72 26 177/96 98 03/07/19 12:20 73 24 170/93 97 03/07/19 12:03 75 93 03/07/19 11:16 87 22 171/99 100 03/07/19 11:10 88 20 95 03/07/19 11:00 95 95 03/07/19 10:55 97 184/108 94 03/07/19 10:52 95 94 03/07/19 10:42 98.3 F 102 40 - Laboratory Lab Results: Lab Results 03/07/19 03/07/19 03/07/19 Range/Units 11:31 11:31 11:31 WBC 7.7 (3.5-10.8) 10^3/uL RBC 3.98 L (4.18-5.48) 10^6 /uL Hgb 11.7 L (14.0-18.0) g/dL Hct 35 L (42-52) % MCV 87 (80-94) fL MCH 29 (27-31) pg MCHC 34 (31-36) g/dL RDW 16 H (10.5-15) % Plt Count 240 (150-450) 10^3/uL MPV 7.0 L (7.4-10.4) fL Neut % (Auto) 79.6 % Lymph % (Auto) 8.0 % [place] % (Auto) 9.7 % Eos % (Auto) 1.9 % Baso % (Auto) 0.8 % Absolute Neuts (auto) 6.1 (1.5-7.7) 10^3/ul Absolute Lymphs (auto) 0.6 L (1.0-4.8) 10^3/ul Absolute Monos (auto) 0.7 (0-0.8) 10^3/ul Absolute Eos (auto) 0.1 (0-0.6) 10^3/ul Absolute Basos (auto) 0.1 (0-0.2) 10^3/ul Absolute Nucleated RBC 0.0 10^3/ul Nucleated RBC % 0.2 INR (Anticoag Therapy) (0.82-1.09) Sodium 133 L (135-145) mmol/L Potassium 4.4 (3.5-5.0) mmol/L Chloride 98 L (101-111) mmol/L Carbon Dioxide 23 (22-32) mmol/L Anion Gap 12 H (2-11) mmol/L BUN 16 (6-24) mg/dL Creatinine 1.69 H (0.67-1.17) mg/dL Est GFR ( Amer) 48.5 (>60) Est GFR (Non-Af Amer) 40.1 (>60) BUN/Creatinine Ratio 9.5 (8-20) Glucose 117 H (70-100) mg/dL Lactic Acid 2.0 (0.5-2.0) mmol/L Calcium 9.9 (8.6-10.3) mg/dL Total Bilirubin 0.70 (0.2-1.0) mg/dL AST 11 L (13-39) U/L ALT 10 (7-52) U/L Alkaline Phosphatase 71 (34-104) U/L Troponin I 0.03 (<0.04) ng/mL C-Reactive Protein 13.69 H (<8.01) mg/L Total Protein 7.5 (6.4-8.9) g/dL Albumin 4.1 (3.2-5.2) g/dL Globulin 3.4 (2-4) g/dL Albumin/Globulin Ratio 1.2 (1-3) 03/07/19 Range/Units 11:31 WBC (3.5-10.8) 10^3/uL RBC (4.18-5.48) 10^6 /uL Hgb (14.0-18.0) g/dL Hct (42-52) % MCV (80-94) fL MCH (27-31) pg MCHC (31-36) g/dL RDW (10.5-15) % Plt Count (150-450) 10^3/uL MPV (7.4-10.4) fL Neut % (Auto) % Lymph % (Auto) % [place] % (Auto) % Eos % (Auto) % Baso % (Auto) % Absolute Neuts (auto) (1.5-7.7) 10^3/ul Absolute Lymphs (auto) (1.0-4.8) 10^3/ul Absolute Monos (auto) (0-0.8) 10^3/ul Absolute Eos (auto) (0-0.6) 10^3/ul Absolute Basos (auto) (0-0.2) 10^3/ul Absolute Nucleated RBC 10^3/ul Nucleated RBC % INR (Anticoag Therapy) 1.04 (0.82-1.09) Sodium (135-145) mmol/L Potassium (3.5-5.0) mmol/L Chloride (101-111) mmol/L Carbon Dioxide (22-32) mmol/L Anion Gap (2-11) mmol/L BUN (6-24) mg/dL Creatinine (0.67-1.17) mg/dL Est GFR ( Amer) (>60) Est GFR (Non-Af Amer) (>60) BUN/Creatinine Ratio (8-20) Glucose (70-100) mg/dL Lactic Acid (0.5-2.0) mmol/L Calcium (8.6-10.3) mg/dL Total Bilirubin (0.2-1.0) mg/dL AST (13-39) U/L ALT (7-52) U/L Alkaline Phosphatase (34-104) U/L Troponin I (<0.04) ng/mL C-Reactive Protein (<8.01) mg/L Total Protein (6.4-8.9) g/dL Albumin (3.2-5.2) g/dL Globulin (2-4) g/dL Albumin/Globulin Ratio (1-3) Result Diagrams: 03/07/19 11:31 03/07/19 11:31 Lab Statement: Any lab studies that have been ordered have been reviewed, and results considered in the medical decision making process. Course/Dx - Course Course Of Treatment: Patient is evaluated for dyspnea on exertion. Symptoms have been worsening over the past 2 days. History of COPD. On arrival to the ED, vital signs are stable and O2 sat is 93% on room air. He is given a DuoNeb on arrival with good improvement. He is given 125 mg methylprednisolone IV and labs obtained. Labs show some hyponatremia as slightly elevated CRP, but otherwise normal. Chest x-ray shows no acute cardio pulmonary disease. On reexamination, patient again states he is feeling improved. He is denying any SOB. He is 98% on 2 L. This was removed and he maintains at 93-94% on no O2. Discussed treatment options and strict return precautions with the patient. He states he is okay for discharge at this time. He is given a tapered dose of prednisone and doxycycline due to his COPD an immunocompromised history. - Diagnoses Provider Diagnoses: COPD exacerbation Discharge - Sign-Out/Discharge Documenting (check all that apply): Patient Departure Patient Received Moderate/Deep Sedation with Procedure: No - Discharge Plan Condition: Stable Disposition: HOME Prescriptions: DOXYcycline CAP(*) [DOXYcycline 100MG CAP(*)] 100 mg PO BID #10 cap predniSONE TAB* [Deltasone 20 MG TAB*] 20 mg PO DAILY #11 tab Patient Education Materials: COPD (Chronic Obstructive Pulmonary Disease) (ED) Referrals: Ugo Leiva MD [Primary Care Provider] - Additional Instructions: Prednisone 2 tabs daily in the morning 3 days, then 1 tab daily in the morning 3 days, then half tab daily in the morning 4 days then he will continue with your 5 mg tabs daily as prescribed Doxycycline twice daily 5 days Continue with your oxygen at home as needed Please follow-up with your PCP - Billing Disposition and Condition Condition: STABLE Disposition: Home
[2019-03-07 13:19] VITALS: BP 170/85
== END 2019-03-07 13:19 | disposition home or self-care (01) ==
LOC: ED 10:39
DX: J44.1 Chronic obstructive pulmonary disease with (acute) exacerbation (principal); Z99.81 Dependence on supplemental oxygen; E87.1 Hypo-osmolality and hyponatremia; Z89.022 Acquired absence of left finger(s); Z88.1 Allergy status to other antibiotic agents; Z88.0 Allergy status to penicillin; Z88.8 Allergy status to other drugs, medicaments and biological substances; Z87.891 Personal history of nicotine dependence
CPT/HCPCS: 36415; 71046; 80053; 83605; 84484; 85025; 85610; 86140; 87040; 93005; 96374; 99283; A9270-GY; J2930